=== PATIENT | female | born 1945 | race Caucasian/White ===

== ENCOUNTER → 2017-07-15 | Outpatient (CLI) | payer MEDICARE, OTHER ==
--- NOTE | 2017-07-15 19:06 | BD ---
EXAMINATION TYPE: MG DEXA axial skeleton. DATE OF EXAM: 07/15/2017 CLINICAL HISTORY: 72-year-old female postmenopausal screening Height: 62 Weight: 136 FRAX RISK QUESTIONS: Alcohol (3 or more units per day): no Family History (Parent hip fracture): no Glucocorticoids (More than 3mos): no (Ex: prednisone, prednisolone, methylprednisolone, dexamethasone, and hydrocortisone). History of Fracture in Adulthood: no Secondary Osteoporosis: 1. Type 1 Diabetes: no 2. Hyperthyroidism: no 3. Menopause before 45: no 4. Malnutrition: no 5. Chronic liver disease: no Rheumatoid Arthritis: no Current Tobacco Use: no RISK FACTORS HISTORY OF: Family History of Osteoporosis: no Active: no Diet low in dairy products/other sources of calcium: several servings a week Postmenopausal woman: yes Take estrogen and/or progesterone medications: no Lost more than 2 inches in height since high school: no Frequent falls: no Poor Health: no Hyperparathyroidism: no Adrenal Insufficiency: no MEDICATIONS: Prednisone or other steroids: no Thyroid Medications: no Osteoporosis Medications:no Additional Medications: blood pressure meds, cholesterol meds Additional History: EXAM MEASUREMENTS: Bone mineral densitometry was performed using the [employer] System. Bone mineral density as measured about the Lumbar spine is: ----- L1-L4(G/cm2): 1.012 T Score Values are as follows: ----- L2: -2.0 ----- L3: -1.8 ----- L4: -0.5 ----- L1-L4: -1.4 Bone mineral density has: Increased 2.2% since study of: 04/18/2005 Bone mineral density about the R hip (g/cm2): 0.818 Bone mineral density about the L hip (g/cm2): 0.882 T Score values are as follows: -----R Neck: -1.6 -----L Neck: -1.1 -----R Total: -1.1 -----L Total: -1.0 Bone mineral density has: Decreased -13.6% since study of: 04/18/2005 IMPRESSION: Osteopenia (T Score between -2.5 and -1). There is slightly increased risk of fracture and the patient may be considered for treatment. Re-Screen 2-5 years. NOTE: T-SCORE=SD OF THE YOUNG ADULT MEAN.
--- NOTE | 2017-07-16 11:01 | MM ---
Reason for exam: screening (asymptomatic). Last mammogram was performed 5 years and 4 months ago. History: Patient is postmenopausal. Physical Findings: A clinical breast exam by your physician is recommended on an annual basis and results should be correlated with mammographic findings. MG 3D Screening Mammo W/Cad Bilateral CC and MLO view(s) were taken. Prior study comparison: March 03, 2012, bilateral digital screening mammo w/CAD. June 27, 2008, bilateral digital screening mammogram. There are scattered fibroglandular densities. Benign calcifications bilaterally. No significant changes when compared with prior studies. ASSESSMENT: Benign, BI-RAD 2 RECOMMENDATION: Routine screening mammogram of both breasts in 1 year.
== END | disposition home or self-care (01) ==
LOC: RADMAMWWP 08:58
PROVIDERS: ATTEND Obstetrics & Gynecology
DX: Z12.31 Encounter for screening mammogram for malignant neoplasm of breast (principal); Z13.820 Encounter for screening for osteoporosis; M85.80 Other specified disorders of bone density and structure, unspecified site; N95.1 Menopausal and female climacteric states
CPT/HCPCS: 77063; 77067; 77080

== ENCOUNTER → 2018-12-28 | Outpatient (CLI) | payer MEDICARE, OTHER ==
--- NOTE | 2018-12-28 19:37 | CONS ---
CONSULTATION Consultation from the [facility]. REASON FOR EVALUATION: Sleep apnea. 73-year-old female patient, referred to me for sleep apnea evaluation. The patient has history of valvular heart disease and has undergone aortic valve replacement, mitral valve repair and she has a bovine aortic valve and she has a pacemaker in place. During a recent pacemaker check, it was noted that she was having some "arrhythmias" and she was referred to me. Clinically, the patient did not have any snoring. No witnessed apneas. No choking or gasping sensation. No grinding of the teeth. She goes to bed around 11:30 p.m., wakes up 9:00 am in the morning. She does not feel tired or having trouble with concentration, memory or sleepiness or drowsiness during the day. She is averaging around 7 hours of sleep. She sleeps very soundly and no restlessness or leg kicks or any other issues disrupting her sleep. Her Lancaster score is at 3. She carries a body mass index of 24.7, and she has a Mallampati class 1. No nighttime orthopnea. No nighttime shortness of breath. No nighttime heartburn. PAST MEDICAL HISTORY: 1. Past medical history of aortic valve replacement and mitral valve repair. 2. History of pacemaker insertion. 3. Hypertension. 4. Hyperlipidemia. PAST SURGICAL HISTORY: Pacemaker and valve surgery including aortic valve replacement and mitral valve repair. DRUG ALLERGIES: Not known. OUTPATIENT MEDICATION LIST: Include aspirin 81 mg p.o. daily, Lisinopril 5 mg half tablet a day. Zocor 40 mg p.o. daily, Coreg 12.5 mg twice a day. Aldactone 25 mg p.o. daily. SOCIAL HISTORY: The patient is a nonsmoker. No history of alcohol. No history of IV drugs. FAMILY HISTORY: Negative for sleep apnea. Positive for heart disease and blood pressure. REVIEW OF SYSTEMS: Fourteen-point review of systems was done and is negative for now. She has no issues with excessive fatigue or sleepiness. No issues with snoring. No insomnia. No choking or gasping for air. No nocturia. No grinding of the teeth. No sleepwalking. No anxiety or panic attacks. No palpitations. No heartburn. No sweating. No claustrophobia. No depression or irritability. No problems with memory and concentration. No sleep paralysis. No hallucinations. No cataplexy. She is able to sleep in different body positions. Her weight has been stable. No history of any motor vehicle accident because of feeling drowsy or sleepy. PHYSICAL EXAMINATION: VITAL SIGNS: BP is 121/83, pulse 72, respirations 16, temperature 97.3, saturation 98% on room air. Height is 5 feet 1 inch weight 135, BMI 24.7, neck size 12-1/2 inches. General appearance: Calm, comfortable. HEAD: Atraumatic normocephalic. NECK: Supple. No JVD. No goiter or neck masses. LUNGS: Clear to auscultation. HEART: Heart sounds are regular rate and rhythm. Normal S1, S2. No S3, S4, no murmurs. ABDOMEN: Soft, nontender. No organomegaly. EXTREMITIES: No edema. No cyanosis or clubbing. NEUROLOGIC: Alert and oriented x3. No focal neurological deficits. PSYCHIATRIC: Negative for anxiety or depression. IMPRESSION: 1. Valvular heart disease with aortic valve placement and mitral valve repair. 2. History of pacemaker for postoperative cardiac Juanjose arrhythmias. 3. Hypertension. 4. Hyperlipidemia. PLAN: Had a lengthy discussion with the patient. The patient is not willing to undergo further testing. I think this is pretty much reasonable knowing that she does not have any signs or symptoms of sleep breathing disorder. Based on this, we decided not to do any further testing. She is already following a good sleep hygiene measure. She is averaging a good 7-8 hours of sleep. Her weight is stable. Her cardiac condition is stable. Her Lancaster score is low. 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 SURY / JAVIN: [id number] /
== END | disposition home or self-care (01) ==
LOC: SLEEP 14:46
PROVIDERS: ATTEND Internal Medicine Critical Care Medicine
DX: I38 Endocarditis, valve unspecified (principal); I10 Essential (primary) hypertension; E78.5 Hyperlipidemia, unspecified; Z95.0 Presence of cardiac pacemaker; Z95.2 Presence of prosthetic heart valve; Z98.890 Other specified postprocedural states; Z79.82 Long term (current) use of aspirin; Z79.899 Other long term (current) drug therapy
CPT/HCPCS: 99211

== ENCOUNTER → 2019-04-20 | Outpatient (CLI) | payer MEDICARE, OTHER ==
[2019-04-20 16:23] LABS: African American GFR (CKD) 64.3 (60.0-200.0); Anion Gap 5.9 mmol/L (4.00-12.00); Calcium 10.7 mg/dL (8.7-10.3); Carbon Dioxide 30.1 mmol/L (21.6-31.8); Non-African American GFR(CKD) 55.5 (60.0-200.0); Potassium 5.5 mmol/L (3.5-5.5)
== END | disposition home or self-care (01) ==
LOC: LABWHC1 10:37
PROVIDERS: ATTEND Internal Medicine Clinical Cardiac Electrophysiology
DX: I10 Essential (primary) hypertension (principal); I48.91 Unspecified atrial fibrillation; I38 Endocarditis, valve unspecified
CPT/HCPCS: 36415; 80048; 80061; 84443

== ENCOUNTER 2019-05-19 23:00 | Emergency (ER) | payer MEDICARE, OTHER ==
[2019-05-19 23:06] VITALS: RESP 18
[2019-05-19] MEDS ORDERED: ASPIRIN 81 MG PO STA (23:42)
--- NOTE | 2019-05-19 23:42 | ED ---
General Adult HPI - General Chief complaint: Extremity Problem,Nontraumatic Stated complaint: Pain in shoulders and arms Time Seen by Provider: 05/19/19 23:09 Source: patient Mode of arrival: ambulatory Limitations: no limitations - History of Present Illness Initial comments: Patient is 74-year-old female with history of mitral and aortic valve repair presenting to emergency Department with a chief complaint of arm pain. Patient reports pain in both shoulders a started about 2 days ago. States the pain feels both make cannot somewhat sharp or shooting pain. Denies any alleviating or aggravating factors. Denies any trauma to the region. Reports the pain is more on the left side versus right. States the pain starts noted top of the shoulder radiates to the elbow. Denies any chest pain, shortness of breath, diaphoretic episodes, lightheaded, dizziness, blurry vision, one-sided weakness or paresthesias. - Related Data Home Medications Medication Instructions Recorded Confirmed Aspirin 81 mg PO BID 10/13/13 12/19/15 Simvastatin [Zocor] 40 mg PO HS 10/13/13 12/19/15 Lisinopril [Prinivil] 5 mg PO 1200 04/10/14 12/19/15 Biotin 1 tab PO DAILY 04/11/14 12/19/15 Docusate [Colace] 1 tab PO DAILY 04/11/14 12/19/15 Multivitamins, Thera [Multivitamin] 1 tab PO DAILY 12/19/15 12/19/15 Previous Rx's Medication Instructions Recorded Carvedilol [Coreg] 3.125 mg PO BID #120 tab 10/13/13 Allergies Allergy/AdvReac Type Severity Reaction Status Date / Time No Known Allergies Allergy Verified 05/19/19 23:06 Review of Systems ROS Statement: Those systems with pertinent positive or pertinent negative responses have been documented in the HPI. ROS Other: All systems not noted in ROS Statement are negative. Past Medical History Past Medical History: GERD/Reflux, Hyperlipidemia Additional Past Medical History / Comment(s): HX OF MITRAL AND AORTIC VALVES REPLACED, HX OF GERD, FREQUENT CONSTIPATION. SEE CAN LABELER H & P. STATES SLIGHTLY [place]. History of Any Multi-Drug Resistant Organisms: None Reported Past Surgical History: Cardiac Valve Replacement, Pacemaker, Tubal Ligation Additional Past Surgical History / Comment(s): AORTIC/MITRAL VALVES REPLACED X2 2002/2009 W/ BOVINE VALVES IN 2009. Past Anesthesia/Blood Transfusion Reactions: Previous Problems w/ Anesthesia, Family History of Problems w/ Anesthesia Additional Past Anesthesia/Blood Transfusion Reaction / Comment(s): PT TAKES LONG TIME TO AWAKEN FROM ANESTHESIA. STATES A COUSIN THAT HAS THE SAME PROBLEM . Type of Cardiac Device: Permanent Pacemaker Device Placement Date:: 2009 Past Psychological History: No Psychological Hx Reported Smoking Status: Never smoker - Past Family History Son(s) Family Medical History: No Reported History Father Family Medical History: Cancer Brother(s) Family Medical History: Cancer General Exam Limitations: no limitations General appearance: alert, in no apparent distress Head exam: Present: atraumatic, normocephalic, normal inspection Eye exam: Present: normal appearance, PERRL, EOMI Pupils: Present: normal accommodation ENT exam: Present: normal exam, normal oropharynx Neck exam: Present: normal inspection, full ROM Respiratory exam: Present: normal lung sounds bilaterally Cardiovascular Exam: Present: regular rate, normal rhythm, normal heart sounds Extremities exam: Present: normal inspection, full ROM, normal capillary refill, other (+2 ulnar and radial pulses bilaterally.). Absent: tenderness (Pain is not reproducible in the left shoulder. Negative Bob. Negative empty can test.), joint swelling Back exam: Present: normal inspection, full ROM Neurological exam: Present: alert, oriented X3 Psychiatric exam: Present: normal affect, normal mood Skin exam: Present: warm, dry, intact, normal color Course Vital Signs 05/19/19 05/20/19 05/20/19 23:02 00:14 01:00 Temperature 97.4 F L Pulse Rate 80 61 55 L Respiratory 18 18 18 Rate Blood Pressure 134/90 121/80 103/71 O2 Sat by Pulse 99 99 94 L Oximetry 05/20/19 05/20/19 05/20/19 02:00 03:00 04:00 Temperature 97.6 F Pulse Rate 56 L 58 L 56 L Respiratory 18 18 18 Rate Blood Pressure 92/68 105/62 105/61 O2 Sat by Pulse 92 L 98 97 Oximetry EKG Findings - EKG Comments: EKG Findings:: Sinus arrhythmia with a ventricular paced rhythm. Ventricular rate 61 him appear 112, QRS 156, QTC 487. Medical Decision Making - Medical Decision Making Patient is a 74-year-old female with history of a pacemaker, dyslipidemia, mitral and aortic valve replacement presenting to emergency with a chief complaint of arm pain. Patient appears to have left upper extremity pain on the left side more versus right. Pain appears to be starting near the trapezius and traveling to the shoulder. No numbness or tingling. No exacerbating or alleviating factors. No trauma to the region. EKG shows a ventricular paced rhythm. Chest x-ray is unremarkable. CBC and CMP are unremarkable. Initial troponins are negative. Repeat troponins are also negative. I have low suspicion for cervical radiculopathy. Patient does not appear to have a cervical tenderness numbness or tingling that radiates all the way to the hand. patient sees on regular bases. She is set to see him this week. Pat ient was given aspirin. Reevaluation patient reports the pain has slowly resolved. Return parameters were thoroughly discussed with patient was understanding and agreeable. Case discussed with physician. - Lab Data Result diagrams: 05/20/19 00:01 05/20/19 00:01 Lab Results 05/20/19 05/20/19 05/20/19 Range/Units 00:01 00:01 00:01 WBC 8.2 (3.8-10.6) k/uL RBC 4.28 (3.80-5.40) m/uL Hgb 13.3 (11.4-16.0) gm/dL Hct 41.1 (34.0-46.0) % MCV 95.9 (80.0-100.0) fL MCH 31.2 (25.0-35.0) pg MCHC 32.5 (31.0-37.0) g/dL RDW 12.6 (11.5-15.5) % Plt Count 220 (150-450) k/uL Neutrophils % 48 % Lymphocytes % 34 % Monocytes % 6 % Eosinophils % 9 % Basophils % 1 % Neutrophils # 4.0 (1.3-7.7) k/uL Lymphocytes # 2.8 (1.0-4.8) k/uL Monocytes # 0.5 (0-1.0) k/uL Eosinophils # 0.7 (0-0.7) k/uL Basophils # 0.1 (0-0.2) k/uL PT 10.0 (9.0-12.0) sec INR 1.0 (<1.2) APTT 23.6 (22.0-30.0) sec Sodium 138 (137-145) mmol/L Potassium 4.7 (3.5-5.1) mmol/L Chloride 104 (98-107) mmol/L Carbon Dioxide 26 (22-30) mmol/L Anion Gap 8 mmol/L BUN 23 H (7-17) mg/dL Creatinine 1.10 H (0.52-1.04) mg/dL Est GFR (CKD-EPI)AfAm 57 (>60 ml/min/1.73 sqM) Est GFR (CKD-EPI)NonAf 50 (>60 ml/min/1.73 sqM) Glucose 109 H (74-99) mg/dL Calcium 10.2 (8.4-10.2) mg/dL Magnesium 2.1 (1.6-2.3) mg/dL Total Bilirubin 0.3 (0.2-1.3) mg/dL AST 26 (14-36) U/L ALT 15 (4-34) U/L Alkaline Phosphatase 62 (38-126) U/L Troponin I (0.000-0.034) ng/mL Total Protein 7.1 (6.3-8.2) g/dL Albumin 4.2 (3.5-5.0) g/dL 05/20/19 05/20/19 Range/Units 00:01 03:20 WBC (3.8-10.6) k/uL RBC (3.80-5.40) m/uL Hgb (11.4-16.0) gm/dL Hct (34.0-46.0) % MCV (80.0-100.0) fL MCH (25.0-35.0) pg MCHC (31.0-37.0) g/dL RDW (11.5-15.5) % Plt Count (150-450) k/uL Neutrophils % % Lymphocytes % % Monocytes % % Eosinophils % % Basophils % % Neutrophils # (1.3-7.7) k/uL Lymphocytes # (1.0-4.8) k/uL Monocytes # (0-1.0) k/uL Eosinophils # (0-0.7) k/uL Basophils # (0-0.2) k/uL PT (9.0-12.0) sec INR (<1.2) APTT (22.0-30.0) sec Sodium (137-145) mmol/L Potassium (3.5-5.1) mmol/L Chloride (98-107) mmol/L Carbon Dioxide (22-30) mmol/L Anion Gap mmol/L BUN (7-17) mg/dL Creatinine (0.52-1.04) mg/dL Est GFR (CKD-EPI)AfAm (>60 ml/min/1.73 sqM) Est GFR (CKD-EPI)NonAf (>60 ml/min/1.73 sqM) Glucose (74-99) mg/dL Calcium (8.4-10.2) mg/dL Magnesium (1.6-2.3) mg/dL Total Bilirubin (0.2-1.3) mg/dL AST (14-36) U/L ALT (4-34) U/L Alkaline Phosphatase (38-126) U/L Troponin I 0.014 0.015 (0.000-0.034) ng/mL Total Protein (6.3-8.2) g/dL Albumin (3.5-5.0) g/dL Disposition Clinical Impression: Pain in both upper extremities Disposition: HOME SELF-CARE Condition: Stable Instructions (If sedation given, give patient instructions): Arm Pain (ED) Additional Instructions: Return to the emergency department if symptoms worsen. Follow-up with primary care. Is patient prescribed a controlled substance at d/c from ED?: No Referrals: Cha Luke III, MD [Primary Care Provider] - 1-2 days Time of Disposition: 04:03
[2019-05-20 00:26] LABS: Basophils # (A) 0.1 k/uL (0-0.2); Basophils % (A) 1 %; Eosinophils # (A) 0.7 k/uL (0-0.7); Eosinophils % (A) 9 %; HCT 41.1 % (34.0-46.0); HGB 13.3 gm/dL (11.4-16.0); Lymphocytes # (A) 2.8 k/uL (1.0-4.8); Lymphocytes % (A) 34 %; MCH 31.2 pg (25.0-35.0); MCHC 32.5 g/dL (31.0-37.0); MCV 95.9 fL (80.0-100.0); Mean Platelet Volume 7.1; Monocytes # (A) 0.5 k/uL (0-1.0); Monocytes % (A) 6 %; Neutrophils % (A) 48 %; Platelet Count 220 k/uL (150-450); RBC 4.28 m/uL (3.80-5.40); RDW 12.6 % (11.5-15.5); WBC 8.2 k/uL (3.8-10.6)
--- NOTE | 2019-05-20 00:26 | XR ---
EXAMINATION TYPE: XR chest 2V DATE OF EXAM: 05/20/2019 COMPARISON: 10/25/2013 HISTORY: Chest pain TECHNIQUE: FINDINGS: There is no heart failure nor confluent pneumonic infiltrate. Costophrenic angles are clear. Thoracic aorta is atheromatous. There is left axillary pacemaker. There are sternal wires. There is cardiac v alve surgery. IMPRESSION: No active cardiopulmonary disease. There is clearing of some atelectasis behind the heart in the left lower lobe compared to old exam.
[2019-05-20 00:44] LABS: Albumin 4.2 g/dL (3.5-5.0); Calcium 10.2 mg/dL (8.4-10.2); Magnesium 2.1 mg/dL (1.6-2.3); Potassium 4.7 mmol/L (3.5-5.1); Total Bilirubin 0.3 mg/dL (0.2-1.3); Total Protein 7.1 g/dL (6.3-8.2)
[2019-05-20 00:51] LABS: Partial Thromboplastin Time 23.6 sec (22.0-30.0)
[2019-05-20 02:56] VITALS: PULSE 56
[2019-05-20 05:23] VITALS: BP 105/61; TEMP 97.6
== END 2019-05-20 04:36 | disposition home or self-care (01) ==
LOC: EC 23:00
DX: M25.511 Pain in right shoulder (principal); M25.512 Pain in left shoulder; M79.601 Pain in right arm; M79.602 Pain in left arm; E78.5 Hyperlipidemia, unspecified; K59.00 Constipation, unspecified; Z79.82 Long term (current) use of aspirin; Z79.899 Other long term (current) drug therapy; Z95.0 Presence of cardiac pacemaker
CPT/HCPCS: 36415; 71046; 80053; 83735; 84484; 85025; 85610; 85730; 93005; 99283

== ENCOUNTER → 2021-10-24 | Outpatient (CLI) | payer MEDICARE ==
[2021-10-24 22:46] LABS: Basophils # (A) 0.04 X 10*3/uL (0.00-0.10); Basophils % (A) 0.4 %; Eosinophils # (A) 0.19 X 10*3/uL (0.04-0.35); Eosinophils % (A) 2.1 %; HCT 41.2 % (37.2-46.3); HGB 13.5 g/dL (12.0-15.0); Lymphocytes # (A) 2.07 X 10*3/uL (0.90-5.00); Lymphocytes % (A) 22.8 %; MCH 31.9 pg (27.0-32.0); MCHC 32.8 g/dL (32.0-37.0); MCV 97.4 fL (80.0-97.0); Mean Platelet Volume 9.6 fL (9.5-12.2); Monocytes # (A) 0.63 X 10*3/uL (0.20-1.00); NRBC Per 100 WBC 0 /100 WBCS (0.0-0.0); Neutrophils # (A) 6.04 X 10*3/uL (1.80-7.70); Neutrophils % (A) 66.7 %; Platelet Count 218 X 10*3/uL (140-440); RBC 4.23 X 10*6/uL (4.10-5.20); RDW 13.1 % (11.5-14.5); WBC 9.06 X 10*3/uL (4.50-10.00)
[2021-10-25 00:27] LABS: African American GFR (CKD) 53.5 (60.0-200.0); Anion Gap 9.3 mmol/L (10.00-18.00); BUN/Creat Ratio 18.78 Ratio (12.00-20.00); Blood Urea Nitrogen 21.6 mg/dL (9.0-27.0); Calcium 10.7 mg/dL (8.7-10.3); Carbon Dioxide 26.5 mmol/L (20.0-27.5); Non-African American GFR(CKD) 46.2 (60.0-200.0); Potassium 5.1 mmol/L (3.5-5.5)
== END | disposition home or self-care (01) ==
LOC: LABPAT 14:38
PROVIDERS: ATTEND Obstetrics & Gynecology
DX: Z01.812 Encounter for preprocedural laboratory examination (principal)
CPT/HCPCS: 80048; 85025; 93005

== ENCOUNTER → 2022-01-02 | Outpatient (CLI) | payer MEDICARE ==
--- NOTE | 2022-01-03 08:28 | MM ---
Reason for Exam: Screening (asymptomatic). Last mammogram was performed 4 year(s) and 5 month(s) ago. Patient History: Menarche at age 11. First Full-Term at age 17. Postmenopausal. Risk Values: Lyly 5 year model risk: 1.4%. NCI Lifetime model risk: 2.8%. Prior Study Comparison: 06/27/2008 Bilateral Screening Mammogram, [facility]. 03/03/2012 Bilateral Screening Mammogram, [facility]. 07/15/2017 Bilateral Screening Mammogram, [facility]. Tissue Density: There are scattered fibroglandular densities. Findings: Analyzed By CAD. There is no suspicious group of microcalcifications or new suspicious mass in either breast. Overall Assessment: Negative, BI-RAD 1 Management: Screening Mammogram of both breasts in 1 year. A clinical breast exam by your physician is recommended on an annual basis and results should be correlated with mammographic findings. [facility] will attempt to contact patient to return for supplemental views and ultrasound if indicated. Electronically signed and approved by: Steve López DO
--- NOTE | 2022-01-03 09:06 | BD ---
EXAMINATION TYPE: Axial Bone Density DATE OF EXAM: 01/02/2022 COMPARISON: 07.15.2017 CLINICAL HISTORY: 76 years year old Female. ICD-10 CODE: M85.88 DISORDER OF BONE Height: 60.5 Weight: 118 FRAX RISK QUESTIONS: NOTHING TO NOTE HERE RISK FACTORS HISTORY OF: Postmenopausal woman: 50 YRS OLD Lost more than 2 inches in height since high school: YES Hyperparathyroidism: NO Adrenal Insufficiency: NO MEDICATIONS: Additional Medications: BP MEDS, CHOLESTEROL MEDS, VIT D AND CALCIUM Additional History: HYPERTENSION, CHOLESTEROL, EXAM MEASUREMENTS: Bone mineral densitometry was performed using the [employer] System. Bone mineral density as measured about the Lumbar spine is: ----- L1-L4(G/cm2): 1.016 T Score Values are as follows: ----- L1: -2.1 ----- L2: -2.2 ----- L3: -1.8 ----- L4: 0.3 ----- L1-L4: -1.4 Bone mineral density has: Increased 0.4% since study of: 07.15.2017 Bone mineral density about the R hip (g/cm2): 0.819 Bone mineral density about the L hip (g/cm2): 0.839 T Score values are as follows: -----R Neck: -1.8 -----L Neck: -1.3 -----R Total: -1.5 -----L Total: -1.3 Bone mineral density has: Decreased -5.3% since study of: 07.15.2017 FRAX%s: The graph provided illustrates a 12.7% chance for a major osteoporotic fx and a 3.3% chance f or the hips probability for fx in 10 years time. IMPRESSION: Osteopenia (T Score between -2.5 and -1). There is slightly increased risk of fracture and the patient may be considered for treatment. Re-Screen 2-5 years. NOTE: T-SCORE=SD OF THE YOUNG ADULT MEAN.
== END | disposition home or self-care (01) ==
LOC: RADMAMWWP 08:45
PROVIDERS: ATTEND Obstetrics & Gynecology
DX: Z12.31 Encounter for screening mammogram for malignant neoplasm of breast (principal); M85.89 Other specified disorders of bone density and structure, multiple sites; Z78.0 Asymptomatic menopausal state
CPT/HCPCS: 77063; 77067; 77080

== ENCOUNTER 2022-11-05 09:18 | Day surgery (SDC) | payer MEDICARE ==
[2022-10-28 16:35] VITALS: BMI 21.5
[~2022-11-05 09:18] MED LIST: LACTATED RINGERS 1,000 ML IV SCH; SODIUM CHLORIDE 0.9% 1,000 ML IV SCH; ceFAZolin 1 GM in SODIUM CHLORIDE 0.9% IRRIG BTL 250 ML IRRIGATION PRN
[2022-11-05 09:39] VITALS: RESP 18; TEMP 97.7
[2022-11-05 09:53] LABS: Basophils % (A) 1 %; Eosinophils # (A) 0.2 k/uL (0-0.7); Eosinophils % (A) 3 %; HCT 38.9 % (34.0-46.0); Lymphocytes # (A) 1.8 k/uL (1.0-4.8); Lymphocytes % (A) 28 %; MCH 32.3 pg (25.0-35.0); MCHC 33.5 g/dL (31.0-37.0); MCV 96.6 fL (80.0-100.0); Mean Platelet Volume 7.4; Monocytes # (A) 0.4 k/uL (0-1.0); Monocytes % (A) 6 %; Neutrophils # (A) 3.9 k/uL (1.3-7.7); Neutrophils % (A) 61 %; Platelet Count 165 k/uL (150-450); RBC 4.03 m/uL (3.80-5.40); WBC 6.4 k/uL (3.8-10.6)
[2022-11-05 10:15] LABS: African American GFR (CKD) 49 (>60 ml/min/1.73 sqM); Anion Gap 5 mmol/L; Blood Urea Nitrogen 24 mg/dL (7-17); Carbon Dioxide 31 mmol/L (22-30); Chloride 103 mmol/L (98-107); Glucose 92 mg/dL (74-99); Non-African American GFR(CKD) 43 (>60 ml/min/1.73 sqM); Potassium 4.8 mmol/L (3.5-5.1); Sodium 139 mmol/L (137-145)
[2022-11-05] MEDS ORDERED: LIDOCAINE 1% INJ 10MG/ML (20 ML MDV) ONE ×2 (10:32→10:33)
[2022-11-05] MEDS ORDERED: VANCOMYCIN 750 MG in SODIUM CHLORIDE 0.9% 250 ML IVPB ONE (11:00)
[2022-11-05] MEDS ORDERED: fentaNYL (PF) 50 MCG/ML 2 ML AMP ONE (11:00)
[2022-11-05] MEDS ORDERED: MIDAZOLAM 2 MG/2 ML VIAL ONE (11:00)
[2022-11-05] MEDS ORDERED: diphenhydrAMINE 50 MG/ML 1 ML VIAL ONE (11:00)
[2022-11-05] MEDS ORDERED: LIDOCAINE 1% INJ 10MG/ML (20 ML MDV) SQ ONE (11:38)
--- NOTE | 2022-11-05 12:18 | P.EPPROC ---
- EP Procedure Note Electrophysiology Procedure Note: Diagnosis Complete heart block, status post biventricular pacemaker to preserve LV function and avoid RV only pacing Biventricular pacemaker generator at TRISTEN, normal battery depletion Procedure LV/ biventricular pacemaker generator change Details Patient was brought to the EP lab in a fasting state. Written informed consent was obtained prior to the procedure. Conscious sedation provided by anesthesia team IV antibiotics administered. Local anesthesia administered. A 4 cm incision m john in the pectoral area. Subfascial pocket was extended caudally to accommodate the device and provide better skin coverage. Atrial lead position the right atrial appendage. Cine fluoroscopy revealed lead in stable position, no fractures or breaks P waves 0.6 V pacing impedance 361 ohms and pacing threshold 0.5 V at 0.4 ms RV lead position in the RV septum. Cine fluoroscopy revealed stable position no fractures or breaks Pacing impedance 494 ohms and pacing threshold 0.75 V at 0.4 ms LV lead positioned in the lateral LV vein. This is a bipolar LV. Pacing threshold 2.25 V at 1.3 ms, stable pacing impedance between 901,000 Cinefluoroscopy revealed no fractures or breaks New Biventricular pacemaker device connected to the leads and placed in the subfascial pocket The patient had been complaining that her skin had thinned out over the generator The subfascial pocket was extended more caudally to provide better skin coverage An antibiotic pouch was also placed in the pocket Patient tolerated the procedure well without acute complications Device programmed to DDDR 50-130 bpm simultaneous pacing of RV and LV, nominal AV delay
[2022-11-05] MEDS ORDERED: ACETAMINOPHEN TAB 325 MG TAB PO PRN (12:20)
[2022-11-05 14:30] VITALS: PULSE 64
[2022-11-05 14:52] VITALS: BP 86/54
[2022-11-05] MEDS ORDERED: SODIUM CHLORIDE 0.9% 250 ML IV SCH (16:15)
== END 2022-11-05 16:15 | disposition home or self-care (01) ==
LOC: CATHEP 09:18
PROVIDERS: ATTEND Internal Medicine Clinical Cardiac Electrophysiology
DX: I44.2 Atrioventricular block, complete (principal); Z95.0 Presence of cardiac pacemaker; E78.5 Hyperlipidemia, unspecified; Z79.01 Long term (current) use of anticoagulants; Z79.899 Other long term (current) drug therapy
CPT/HCPCS: 33229; 80048; 85025; C1769; C2621; J2250; J3370; J1200; J0690; J2001; J3010

== ENCOUNTER → 2023-03-02 | Outpatient (CLI) | payer MEDICARE ==
--- NOTE | 2023-03-04 08:42 | MM ---
Reason for Exam: Screening (asymptomatic). Last mammogram was performed 1 year(s) and 2 month(s) ago. Patient History: Menarche at age 11. First Full-Term at age 17. Postmenopausal. Risk Values: Lyly 5 year model risk: 1.4%. NCI Lifetime model risk: 2.7%. Prior Study Comparison: 03/03/2012 Bilateral Screening Mammogram, [facility]. 07/15/2017 Bilateral Screening Mammogram, [facility]. 01/02/2022 Bilateral MG 3D screening mammo w/cad, [facility]. Tissue Density: The breast tissue is heterogeneously dense. This may lower the sensitivity of mammography. Findings: Analyzed By CAD. There is no suspicious group of microcalcifications or new suspicious mass in either breast. Overall Assessment: Benign, BI-RAD 2 Management: Screening Mammogram of both breasts in 1 year. . Patient should continue monthly self-breast exams. A clinical breast exam by your physician is recommended on an annual basis. This exam should not preclude additional follow-up of suspicious palpable abnormalities. Note on Lyly scores and lifetime risk: 1. A Lyly score greater than 3% is considered moderate risk. If this is the case, consider specialist referral to assess eligibility for a risk reducing agent. 2. If overall lifetime risk for the development of breast cancer is 20% or higher, the patient may qualify for future screening with alternating mammogram and breast MRI. Electronically signed and approved by: Giuliano Quevedo M.D. Radiologis
== END | disposition home or self-care (01) ==
LOC: RADMAMWWP 15:51
PROVIDERS: ATTEND Family Medicine
DX: Z12.31 Encounter for screening mammogram for malignant neoplasm of breast (principal); Z78.0 Asymptomatic menopausal state
CPT/HCPCS: 77063; 77067

== ENCOUNTER 2023-09-25 21:54 | Observation (INO) | payer MEDICARE ==
[2023-09-25 23:18] LABS: Basophils % (A) 0 %; Eosinophils # (A) 0.1 k/uL (0-0.7); Eosinophils % (A) 1 %; HCT 30.8 % (34.0-46.0); HGB 10.6 gm/dL (11.4-16.0); Lymphocytes # (A) 1.4 k/uL (1.0-4.8); Lymphocytes % (A) 17 %; MCH 32.4 pg (25.0-35.0); MCHC 34.4 g/dL (31.0-37.0); MCV 94.2 fL (80.0-100.0); Mean Platelet Volume 8.1; Monocytes # (A) 0.8 k/uL (0-1.0); Monocytes % (A) 9 %; Neutrophils # (A) 5.8 k/uL (1.3-7.7); Neutrophils % (A) 69 %; Platelet Count 226 k/uL (150-450); RBC 3.27 m/uL (3.80-5.40); RDW 13.4 % (11.5-15.5); WBC 8.4 k/uL (3.8-10.6)
[2023-09-25 23:31] LABS: INR 1.1 (<1.2)
[2023-09-25 23:40] LABS: ALT 15 U/L (4-34); AST 23 U/L (14-36); African American GFR (CKD) 52 (>60 ml/min/1.73 sqM); Albumin 3.2 g/dL (3.5-5.0); Alkaline Phosphatase 92 U/L (38-126); Anion Gap 5 mmol/L; Blood Urea Nitrogen 34 mg/dL (7-17); Calcium 9.3 mg/dL (8.4-10.2); Carbon Dioxide 21 mmol/L (22-30); Chloride 105 mmol/L (98-107); Glucose 107 mg/dL (74-99); Non-African American GFR(CKD) 45 (>60 ml/min/1.73 sqM); Potassium 5.1 mmol/L (3.5-5.1); Sodium 131 mmol/L (137-145); Total Bilirubin 0.8 mg/dL (0.2-1.3); Total Protein 5.9 g/dL (6.3-8.2)
[2023-09-26] MEDS ORDERED: ORPHENADRINE 30 MG/ML 2 ML VIAL IM PRN (01:21)
--- NOTE | 2023-09-26 01:22 | ED ---
Back Pain HPI - General Chief Complaint: Back Pain/Injury Stated Complaint: Back Pain Time Seen by Provider: 09/25/23 22:00 Source: patient Limitations: no limitations - History of Present Illness Initial Comments: 78-year-old female presents emergency department as a transfer from [facility]. She went into the emergency department today complaining of left-sided paraspinal pain. Pain is crampy in nature. It is worse with movement and palpation of the area. She does have a history of cardiac disease and therefore a cardiac workup was pursued. Patient received a considerable amount of medications to help alleviate her symptoms however she still had continued pain. She was transferred to our facility for further evaluation. Patient has a pacemaker. She denies any anterior chest pain. No fevers. Does admit to a slight cough. No other alleviating, precipitating modifying factors - Related Data Home Medications Medication Instructions Recorded Confirmed Lisinopril [Prinivil] 2.5 mg PO HS 04/10/14 11/05/22 Multivitamins, Thera [Multivitamin 1 tab PO DAILY 12/19/15 11/05/22 (formulary)] Apixaban [Eliquis] 5 mg PO BID 10/31/21 11/05/22 Atorvastatin [Lipitor] 40 mg PO HS 10/31/21 11/05/22 Spironolactone [Aldactone] 25 mg PO DAILY 10/31/21 11/05/22 carvediloL [Coreg] 12.5 mg PO BID 10/31/21 11/05/22 Biotin [Biotin Disolve] 5,000 mcg PO DAILY 10/28/22 11/05/22 Calcium Carbonate/Vitamin D3 2 each PO DAILY 10/28/22 11/05/22 [Calcium 600 mg-D3 20 mcg (800 unit)] Allergies Allergy/AdvReac Type Severity Reaction Status Date / Time No Known Allergies Allergy Verified 09/25/23 22:02 Review of Systems ROS Statement: Those systems with pertinent positive or pertinent negative responses have been documented in the HPI. ROS Other: All systems not noted in ROS Statement are negative. Past Medical History Past Medical History: Cancer, Hyperlipidemia, Hypertension Additional Past Medical History / Comment(s): hx mitral & aortic valve replacement, pacemaker, skin cancer., See [facility]iology [facility]. History of Any Multi-Drug Resistant Organisms: None Reported Past Surgical History: Cardiac Valve Replacement, Hysterectomy, Pacemaker, Tubal Ligation Additional Past Surgical History / Comment(s): AORTIC/MITRAL VALVES REPLACED W/ BOVINE VALVES Past Anesthesia/Blood Transfusion Reactions: Previous Problems w/ Anesthesia, Family History of Problems w/ Anesthesia Additional Past Anesthesia/Blood Transfusion Reaction / Comment(s): PT TAKES LONG TIME TO AWAKEN FROM ANESTHESIA. STATES A COUSIN THAT HAS THE SAME PROBLEM . Type of Cardiac Device: Permanent Pacemaker Device Placement Date:: 2009 Past Psychological History: No Psychological Hx Reported Smoking Status: Never smoker Past Alcohol Use History: Rare Past Drug Use History: None Reported - Past Family History Son(s) Family Medical History: Cancer Additional Family Medical History / Comment(s): NON -HODGKINS LYMPHOMA Father Family Medical History: Cancer Brother(s) Family Medical History: Cancer Mother Family Medical History: Cancer General Exam Limitations: no limitations General appearance: alert, in no apparent distress Head exam: Present: atraumatic, normocephalic, normal inspection Eye exam: Present: normal appearance, PERRL, EOMI. Absent: scleral icterus, conjunctival injection, periorbital swelling ENT exam: Present: normal exam, mucous membranes moist Neck exam: Present: normal inspection. Absent: tenderness, meningismus, lymphadenopathy Respiratory exam: Present: normal lung sounds bilaterally, chest wall tenderness (To palpation of the left posterior chest wall. No step-offs.). Absent: respiratory distress, wheezes, rales, rhonchi, stridor Cardiovascular Exam: Present: regular rate, normal rhythm, normal heart sounds. Absent: systolic murmur, diastolic murmur, rubs, gallop, clicks GI/Abdominal exam: Present: soft, normal bowel sounds. Absent: distended, tenderness, guarding, rebound, rigid Extremities exam: Present: normal inspection, full ROM, normal capillary refill. Absent: tenderness, pedal edema, joint swelling, calf tenderness Back exam: Present: normal inspection Neurological exam: Present: alert, oriented X3, CN II-XII intact Psychiatric exam: Present: normal affect, normal mood Skin exam: Present: warm, dry, intact, normal color. Absent: rash Course Vital Signs 09/25/23 09/25/23 09/26/23 21:57 23:51 01:00 Temperature 99.5 F Pulse Rate 65 60 62 Respiratory 20 18 18 Rate Blood Pressure 108/75 115/79 108/75 O2 Sat by Pulse 95 95 95 Oximetry 09/26/23 02:00 Temperature 98.1 F Pulse Rate 67 Respiratory 18 Rate Blood Pressure 107/60 O2 Sat by Pulse 95 Oximetry Medical Decision Making - Medical Decision Making Was pt. sent in by a medical professional or institution (, PA, FRONT OFFICE SPECIALIST, urgent care, hospital, or half-way...) When possible be specific @ -Patient was transferred by Glenda Magaña Did you speak to anyone other than the patient for history (EMS, parent, family, police, friend...)? What history was obtained from this source @ -Spoke with transferring physician Did you review nursing and triage notes (agree or disagree)? Why? @ -[I reviewed and agree with nursing and triage notes] Were old charts reviewed (outside hosp., previous admission, EMS record, old EKG, old radiological studies, urgent care reports/EKG's, half-way records)? Report findings @ -[No old charts were reviewed] Differential Diagnosis (chest pain, altered mental status, abdominal pain women, abdominal pain men, vaginal bleeding, weakness, fever, dyspnea, syncope, headache, dizziness, GI bleed, back pain, seizure, CVA, palpatations, mental health, musculoskeletal)? @ -Differential Back Pain: Strain, zoster, cauda equina syndrome, epidural abscess, vertebral osteomyelitis, discitis, fracture, subluxation, disc herniation, DJD, spinal stenosis, dissection, AAA, pancreatitis, peptic ulcer disease, pyelonephritis, kidney stone, this is not meant to be an all-inclusive list. EKG interpreted by me (3pts min.). @ -Yes and demonstrates electronic pacemaker with a rate of 66. QRS 158. QTc of 469. No acute ST segment elevations or depressions X-rays interpreted by me (1pt min.). @ -[None done] CT interpreted by me (1pt min.). @ -Yes and demonstrates no acute findings to account for the patient's pain U/S interpreted by me (1pt. min.). @ -[None done] What testing was considered but not performed or refused? (CT, X-rays, U/S, labs)? Why? @ -[None] What meds were considered but not given or refused? Why? @ -[None] Did you discuss the management of the patient with other professionals (professionals i.e. , PA, FRONT OFFICE SPECIALIST, lab, RT, psych nurse, marriage and family social worker, marine oiler, teacher, consumer loan officer, case investigator)? Give summary @ -[No] Was smoking cessation discussed for >3mins.? @ -[No] Was critical care preformed (if so, how long)? @ -[No] Were there social determinants of health that impacted care today? How? (Homelessness, low income, unemployed, alcoholism, drug addiction, transportation, low edu. Level, literacy, decrease access to med. care, alf, rehab)? @ -[No] Was there de-escalation of care discussed even if they declined (Discuss DNR or withdrawal of care, Hospice)? DNR status @ -[No] What co-morbidities impacted this encounter? (DM, HTN, Smoking, COPD, CAD, Cancer, CVA, ARF, Chemo, Hep., AIDS, mental health diagnosis, sleep apnea, morbid obesity)? @ -[None] Was patient admitted / discharged? Hospital course, mention meds given and route, prescriptions, significant lab abnormalities, going to OR and other pertinent info. @ -[hospital course] Undiagnosed new problem with uncertain prognosis? @ -[No] Drug Therapy requiring intensive monitoring for toxicity (Heparin, Nitro, Insulin, Cardizem)? @ -[No] Were any procedures done? @ -[No] Diagnosis/symptom? @ -[default] Acute, or Chronic, or Acute on Chronic? @ -[default] Uncomplicated (without systemic symptoms) or Complicated (systemic symptoms)? @ -[default] Side effects of treatment? @ -[No] Exacerbation, Progression, or Severe Exacerbation? @ -[No] Poses a threat to life or bodily function? How? (Chest pain, USA, CA, pneumonia, PE, COPD, DKA, ARF, appy, cholecystitis, CVA, Diverticulitis, Homicidal, Suic idal, threat to staff... and all critical care pts) @ -[No] - Lab Data Result diagrams: 09/25/23 22:57 09/25/23 22:57 Lab Results 09/25/23 09/25/23 09/25/23 Range/Units 22:57 22:57 22:57 WBC 8.4 (3.8-10.6) k/uL RBC 3.27 L (3.80-5.40) m/uL Hgb 10.6 L (11.4-16.0) gm/dL Hct 30.8 L (34.0-46.0) % MCV 94.2 (80.0-100.0) fL MCH 32.4 (25.0-35.0) pg MCHC 34.4 (31.0-37.0) g/dL RDW 13.4 (11.5-15.5) % Plt Count 226 (150-450) k/uL MPV 8.1 Neutrophils % 69 % Lymphocytes % 17 % Monocytes % 9 % Eosinophils % 1 % Basophils % 0 % Neutrophils # 5.8 (1.3-7.7) k/uL Lymphocytes # 1.4 (1.0-4.8) k/uL Monocytes # 0.8 (0-1.0) k/uL Eosinophils # 0.1 (0-0.7) k/uL Basophils # 0.0 (0-0.2) k/uL PT 12.0 (10.0-12.5) sec INR 1.1 (<1.2) APTT 32.0 H (22.0-30.0) sec Sodium 131 L (137-145) mmol/L Potassium 5.1 (3.5-5.1) mmol/L Chloride 105 (98-107) mmol/L Carbon Dioxide 21 L (22-30) mmol/L Anion Gap 5 mmol/L BUN 34 H (7-17) mg/dL Creatinine 1.17 H (0.52-1.04) mg/dL Est GFR (CKD-EPI)AfAm 52 (>60 ml/min/1.73 sqM) Est GFR (CKD-EPI)NonAf 45 (>60 ml/min/1.73 sqM) Glucose 107 H (74-99) mg/dL Calcium 9.3 (8.4-10.2) mg/dL Total Bilirubin 0.8 (0.2-1.3) mg/dL AST 23 (14-36) U/L ALT 15 (4-34) U/L Alkaline Phosphatase 92 (38-126) U/L Troponin I (0.000-0.034) ng/mL Total Protein 5.9 L (6.3-8.2) g/dL Albumin 3.2 L (3.5-5.0) g/dL 09/25/23 Range/Units 22:57 WBC (3.8-10.6) k/uL RBC (3.80-5.40) m/uL Hgb (11.4-16.0) gm/dL Hct (34.0-46.0) % MCV (80.0-100.0) fL MCH (25.0-35.0) pg MCHC (31.0-37.0) g/dL RDW (11.5-15.5) % Plt Count (150-450) k/uL MPV Neutrophils % % Lymphocytes % % Monocytes % % Eosinophils % % Basophils % % Neutrophils # (1.3-7.7) k/uL Lymphocytes # (1.0-4.8) k/uL Monocytes # (0-1.0) k/uL Eosinophils # (0-0.7) k/uL Basophils # (0-0.2) k/uL PT (10.0-12.5) sec INR (<1.2) APTT (22.0-30.0) sec Sodium (137-145) mmol/L Potassium (3.5-5.1) mmol/L Chloride (98-107) mmol/L Carbon Dioxide (22-30) mmol/L Anion Gap mmol/L BUN (7-17) mg/dL Creatinine (0.52-1.04) mg/dL Est GFR (CKD-EPI)AfAm (>60 ml/min/1.73 sqM) Est GFR (CKD-EPI)NonAf (>60 ml/min/1.73 sqM) Glucose (74-99) mg/dL Calcium (8.4-10.2) mg/dL Total Bilirubin (0.2-1.3) mg/dL AST (14-36) U/L ALT (4-34) U/L Alkaline Phosphatase (38-126) U/L Troponin I 0.024 (0.000-0.034) ng/mL Total Protein (6.3-8.2) g/dL Albumin (3.5-5.0) g/dL Disposition Clinical Impression: Intractable back pain Disposition: ADMITTED IP TO THIS HOSP Condition: Stable Is patient prescribed a controlled substance at d/c from ED?: No Time of Disposition: : Decision to Admit Reason: Admit from EC Decision Date: 09/26/23 Decision Time: :
[2023-09-26] MEDS ORDERED: NALOXONE 0.4 MG/ML 1 ML VIAL IV PRN ×2 (01:27→10:37)
[2023-09-26] MEDS ORDERED: MORPHINE SULFATE 4 MG/ML SYRINGE IV PRN (01:27)
[2023-09-26] MEDS: KETOROLAC 15 MG/ML 1 ML VIAL IVP STA (01:35)
--- NOTE | 2023-09-26 02:09 | CT ---
EXAM: CT Thoracic Spine Without Intravenous Contrast CLINICAL HISTORY: ITS.REASON CT Reason: chest/back pain TECHNIQUE: Axial computed tomography images of the thoracic spine without intravenous contrast. CTDI is 5 mGy and DLP is 190 mGy-cm. This CT exam was performed using one or more of the following dose reduction techniques: automated exposure control, adjustment of the mA and/or kV according to patient size, and/or use of iterative reconstruction technique. COMPARISON: No relevant prior studies available. FINDINGS: Vertebrae: No acute fracture. No sagittal subluxation. Discs/spinal canal/neural foramina: No spinal canal stenosis. Soft tissues: Mild right basilar atelectasis. IMPRESSION: No acute findings.
--- NOTE | 2023-09-26 02:15 | CT ---
EXAM: CT Chest Without Intravenous Contrast CLINICAL HISTORY: ITS.REASON CT Reason: chest pain TECHNIQUE: Axial computed tomography images of the chest without intravenous contrast. CTDI is 4.7 mGy and DLP is 211.7 mGy-cm. This CT exam was performed using one or more of the following dose reduction techniques: automated exposure control, adjustment of the mA and/or kV according to patient size, and/or use of iterative reconstruction technique. COMPARISON: No previous studies. FINDINGS: Lungs: Patchy airspace disease at the left lower lobe and the right lower lobe differential etiologies include which includes pneumonia versus atelectasis. Clinical correlation is advised of the findings are nonspecific. COPD. No mass. Pleural space: Unremarkable. No pneumothorax. No significant effusion. Heart: 0.4 cm pericardial effusion. Cardiomegaly. No significant coronary artery calcifications. Thyroid: Thyroid gland is unremarkable. Bones/joints: Sternotomy wires are noted in place. Severe degenerative disc disease of the thoracic spine. No acute fracture. No dislocation. Soft tissues: Unremarkable. Vasculature: Atherosclerotic disease of the thoracic aorta is noted. Ascending thoracic aorta measures 4.1 cm and is dilated. Is there a history of etiology such as hypertension. Lymph nodes: Unremarkable. No enlarged lymph nodes. Tubes, lines and devices: Pacemaker overlies the left upper chest. Other findings: ASCVD. IMPRESSION: 1. Cardiomegaly. 2. Atherosclerotic disease and ASCVD. 3. Patchy airspace disease near the lung bases. Consider pneumonia versus atelectasis. 4. Dilatation of the ascending thoracic aorta. Is there a history of etiology such as hypertension? No pathologic lymphadenopathy.
[2023-09-26] MEDS ORDERED: cefTRIAXone IN SWFI 1,000 MG/10 ML SYRINGE IVP STA (02:46)
[2023-09-26] MEDS: SODIUM CHLORIDE 0.9% 1,000 ML IV SCH (04:00)
[2023-09-26] MEDS: AZITHROMYCIN 500 MG TAB PO SCH (08:29)
[2023-09-26] MEDS: KETOROLAC 15 MG/ML 1 ML VIAL IVP PRN (10:53)
[2023-09-26] MEDS: APIXABAN 5 MG TAB PO SCH (11:05)
--- NOTE | 2023-09-26 11:26 | P.CNOR ---
History of Present Illness - [facility] Consult date: 09/26/23 Consult reason: back pain History of present illness: Patient is a 78-year-old female who was transferred from [facility] to [facility] for further evaluation of left-sided mid back pain. Patient had underwent a cardiology workup due to her cardiac history. Patient was admitted to [facility] for further evaluation, our orthopedic team was consulted. Patient was evaluated on the medical/surgical floor, her was present at bedside. Patient was very pleasant on exam. She states that the left-sided mid back discomfort has been going on for about a week. Patient was prescribed a few different medications by her primary care doctor, she cannot remember exactly what she took. She does admit to having some type of muscle relaxer that made her very sleepy. Patient denies any recent trauma. Patient states for the last 2 weeks she has felt very achy all over and having lack of energy. Patient denies any previous surgery to the cervical, thoracic or lumbar spine. Patient has been utilizing a cane to help with ambulation over the last week or so. Patient denies any numbness or tingling to the bilateral upper or lower extremities. She denies any tristan weakness to the bilateral upper and lower extremities. She denies any numbness or tingling to the genital or perineal region. She denies any loss of bowel or bladder function at this time. Review of Systems Constitutional: Reports as per [facility] Past Medical History Past Medical History: Cancer, Hyperlipidemia, Hypertension Additional Past Medical History / Comment(s): hx mitral & aortic valve replacem ent, pacemaker, skin cancer., See Cardiology [facility]. History of Any Multi-Drug Resistant Organisms: None Reported Past Surgical History: Cardiac Valve Replacement, Hysterectomy, Pacemaker, Tubal Ligation Additional Past Surgical History / Comment(s): AORTIC/MITRAL VALVES REPLACED 2002/2009 W/ BOVINE VALVES Past Anesthesia/Blood Transfusion Reactions: Previous Problems w/ Anesthesia, Family History of Problems w/ Anesthesia Additional Past Anesthesia/Blood Transfusion Reaction / Comm: PT TAKES LONG TIME TO AWAKEN FROM ANESTHESIA. STATES A COUSIN THAT HAS THE SAME PROBLEM . Type of Cardiac Device: Permanent Pacemaker Device Placement Date:: 2009 Past Psychological History: No Psychological Hx Reported Smoking Status: Never smoker Past Alcohol Use History: Rare Past Drug Use History: None Reported - Past Family History Son(s) Family Medical History: Cancer Additional Family Medical History / Comment(s): NON -HODGKINS LYMPHOMA Father Family Medical History: Cancer Brother(s) Family Medical History: Cancer Mother Family Medical History: Cancer Medications and Allergies Home Medications Medication Instructions Recorded Confirmed Type Lisinopril [Prinivil] 2.5 mg PO HS 04/10/14 09/26/23 History Apixaban [Eliquis] 5 mg PO BID 10/31/21 09/26/23 History Atorvastatin [Lipitor] 40 mg PO HS 10/31/21 09/26/23 History Spironolactone [Aldactone] 25 mg PO DAILY 10/31/21 09/26/23 History carvediloL [Coreg] 12.5 mg PO BID 10/31/21 09/26/23 History tiZANidine [Zanaflex] 4 mg PO Q8HR 09/26/23 09/26/23 History Allergies Allergy/AdvReac Type Severity Reaction Status Date / Time No Known Allergies Allergy Verified 09/26/23 09:11 Physical Examination Gen: AOx3, NAD VSS stable at this time Integument: No open lesions or sores are visualized throughout the cervical, thoracic or lumbar spine. Patient does have a Lidoderm patch in the mid thoracic spine. Palpation: No significant tenderness with palpation appreciated throughout the cervical, thoracic or lumbar spine. Patient notes most discomfort on the left side mid thoracic with movement ROM: Full range of motion in all major muscle groups of the bilateral upper and lower extremities, no focal deficits appreciated Sensory Exam: Senory exam to light touch is intact C5-T1 Senosry exam to light touch is intact L2-S1 Motor: 5/5 strength appreciated the bilateral upper extremities with shoulder elevation, shoulder abduction, elbow extension, elbow flexion, wrist extension, wrist flexion, cigarette stamper 5/5 strength appreciated the bilateral lower extremities with hip flexion, knee extension, knee flexion, plantarflexion, dorsiflexion, EHL, FHL Reflexes: 2/4 in all UE and LE Negative Jg's bilaterally Negative Babinski bilaterally Negative clonus bilaterally Special Test: Logroll maneuver reproduces no pain to the bilateral hips Negative straight leg raise bilaterally Results - Labs Labs: Abnormal Lab Results - Last 24 Hours (Table) 09/25/23 09/25/23 09/25/23 Range/Units 22:57 22:57 22:57 RBC 3.27 L (3.80-5.40) m/uL Hgb 10.6 L (11.4-16.0) gm/dL Hct 30.8 L (34.0-46.0) % APTT 32.0 H (22.0-30.0) sec Sodium 131 L (137-145) mmol/L Carbon Dioxide 21 L (22-30) mmol/L BUN 34 H (7-17) mg/dL Creatinine 1.17 H (0.52-1.04) mg/dL Glucose 107 H (74-99) mg/dL Total Protein 5.9 L (6.3-8.2) g/dL Albumin 3.2 L (3.5-5.0) g/dL H & H 09/25/23 Range/Units 22:57 Hgb 10.6 L (11.4-16.0) gm/dL Hct 30.8 L (34.0-46.0) % Coagulation 09/25/23 Range/Units 22:57 INR 1.1 (<1.2) Result Diagrams: 09/25/23 22:57 09/25/23 22:57 Assessment and Plan Assessment: Left-sided mid thoracic back pain Left-sided mid thoracic muscle spasm 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 No acute fractures or dislocations noted. Kyphotic deformity appreciated in the thoracic spine. 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 Healy. No emergent orthopedic spine surgical intervention is recommended at this time. Patient has multilevel degenerative disc disease in the thoracic spine, could also visualize some of the cervical and lumbar spine which was also present. Patient is demonstrating no myelopathic symptoms at this time. Recommending conservative measures, this to include use of Tylenol, NSAIDs, low- dose muscle relaxer, and alternating heat and cold therapy GI and DVT prophylaxis per primary medical service Medical specialty recommendations appreciated Will continue to follow during hospital stay Time with Patient: Less than 30
--- NOTE | 2023-09-26 14:29 | P.HPIM ---
History of Present Illness H&P Date: 09/26/23 History of present illness; patient is 78-year-old lady who was a transfer from [facility] for evaluation for back pain. Patient stated that she was all right couple of days ago and started noticing left-sided back pain. Back pain was crampy in nature, intermittent, worsened with movement and relieved by rest. There was no complaint of fever or chills. There was no complaint of chest pain or shortness of breath. Patient was complaining of cough. Because of these back pain issues, patient was sent to [facility] Initial lab work done in the ER showed WBC 8.4, hemoglobin 10.6, platelet count 226, sodium 131, potassium 5.1, chloride 105,21, BUN 24, creatinine 1.17, glucose 107, calcium 9.3, total bilirubin 0.8, troponin 0.024 CT thoracic spine done showed no acute findings. CT chest done showed cardiomegaly, patchy airspace disease in the lung bases. EKG done in the ER showed heart rate of 66, electronic paced rhythm, no ST segment elevation or depression seen, no T-wave inversions seen. Patient admitted to internal medicine service REVIEW OF SYSTEMS: CONSTITUTIONAL: No fever, no malaise, no fatigue. HEENT: No recent visual problems or hearing problems. Denied any sore throat. CARDIOVASCULAR: No chest pain, orthopnea, PND, no palpitations, no syncope. PULMONARY: As mentioned above GASTROINTESTINAL: No diarrhea, no nausea, no vomiting, no abdominal pain. NEUROLOGICAL: No headaches, no weakness, no numbness. HEMATOLOGICAL: Denies any bleeding or petechiae. GENITOURINARY: Denies any burning micturition, frequency, or urgency. MUSCULOSKELETAL/RHEUMATOLOGICAL: As mentioned above ENDOCRINE: Denies any polyuria or polydipsia. The rest of the 14-point review of systems is negative. PHYSICAL EXAMINATION: GENERAL: The patient is alert and oriented x3, not in any acute distress. Well developed, well nourished. HEENT: Pupils are round and equally reacting to light. EOMI. No scleral icterus. No conjunctival pallor. Normocephalic, atraumatic. No pharyngeal erythema. No thyromegaly. CARDIOVASCULAR: S1 and S2 present. No murmurs, rubs, or gallops. PULMONARY: Chest is clear to auscultation, no wheezing or crackles. ABDOMEN: Soft, nontender, nondistended, normoactive bowel sounds. No palpable organomegaly. MUSCULOSKELETAL: No joint swelling or deformity. EXTREMITIES: No cyanosis, clubbing, or pedal edema. NEUROLOGICAL: Gross neurological examination did not reveal any focal deficits. SKIN: No rashes. Assessment and plan Intractable back pain Bacterial pneumonia History of mitral and aortic valve replacement Acute kidney injury Hypertension hyperlipidemia History of complete heart block s/p pacemaker placement History of atrial fibrillation Monitor vital signs Monitor CBC Monitor CMP Continue telemetry monitoring Trend troponin. Ordered IV Rocephin and azithromycin On IV fluids Ordered pain control Resume home meds Consult orthopedic spine for back pain Labs and medication were reviewed.. Continue same treatment. Continue with symptomatic treatment. Resume home medication. Monitor labs and vitals. DVT and GI prophylaxis. Further recommendations as per clinical course of the patient Dictation was produced using [employer] dictation software. please excuse any grammatical, word or spelling errors. Past Medical History Past Medical History: Cancer, Hyperlipidemia, Hypertension Additional Past Medical History / Comment(s): hx mitral & aortic valve re placement, pacemaker, skin cancer., See Cardiology H & P. History of Any Multi-Drug Resistant Organisms: None Reported Past Surgical History: Cardiac Valve Replacement, Hysterectomy, Pacemaker, Tubal Ligation Additional Past Surgical History / Comment(s): AORTIC/MITRAL VALVES REPLACED W/ BOVINE VALVES Past Anesthesia/Blood Transfusion Reactions: Previous Problems w/ Anesthesia, Family History of Problems w/ Anesthesia Additional Past Anesthesia/Blood Transfusion Reaction / Comment(s): PT TAKES LONG TIME TO AWAKEN FROM ANESTHESIA. STATES A COUSIN THAT HAS THE SAME PROBLEM . Type of Cardiac Device: Permanent Pacemaker Device Placement Date:: 2009 Past Psychological History: No Psychological Hx Reported Smoking Status: Never smoker Past Alcohol Use History: Rare Past Drug Use History: None Reported - Past Family History Son(s) Family Medical History: Cancer Additional Family Medical History / Comment(s): NON -HODGKINS LYMPHOMA Father Family Medical History: Cancer Brother(s) Family Medical History: Cancer Mother Family Medical History: Cancer Medications and Allergies Home Medications Medication Instructions Recorded Confirmed Type Lisinopril [Prinivil] 2.5 mg PO HS 04/10/14 09/26/23 History Apixaban [Eliquis] 5 mg PO BID 10/31/21 09/26/23 History Atorvastatin [Lipitor] 40 mg PO HS 10/31/21 09/26/23 History Spironolactone [Aldactone] 25 mg PO DAILY 10/31/21 09/26/23 History carvediloL [Coreg] 12.5 mg PO BID 10/31/21 09/26/23 History tiZANidine [Zanaflex] 4 mg PO Q8HR 09/26/23 09/26/23 History Allergies Allergy/AdvReac Type Severity Reaction Status Date / Time No Known Allergies Allergy Verified 09/26/23 09:11 Physical Exam Vitals: Vital Signs Temp Pulse Pulse Pulse Resp BP BP 09/26/23 07:23 97.7 F 70 16 94/60 09/26/23 04:00 98.6 F 09/26/23 03:04 98.0 F 68 18 109/71 09/26/23 02:00 98.1 F 67 18 107/60 09/26/23 01:00 62 18 108/75 09/25/23 23:51 60 18 115/79 09/25/23 21:57 99.5 F 65 20 108/75 Pulse Ox 09/26/23 07:23 95 09/26/23 04:00 09/26/23 03:04 94 L 09/26/23 02:00 95 09/26/23 01:00 95 09/25/23 23:51 95 09/25/23 21:57 95 Intake and Output 09/25/23 09/26/23 09/26/23 22:59 06:59 14:59 Other: # Voids 0 Weight 51.71 kg 51.71 kg Results CBC & Chem 7: 09/25/23 22:57 09/25/23 22:57 Labs: Abnormal Lab Results - Last 24 Hours (Table) 09/25/23 09/25/23 09/25/23 Range/Units 22:57 22:57 22:57 RBC 3.27 L (3.80-5.40) m/uL Hgb 10.6 L (11.4-16.0) gm/dL Hct 30.8 L (34.0-46.0) % APTT 32.0 H (22.0-30.0) sec Sodium 131 L (137-145) mmol/L Carbon Dioxide 21 L (22-30) mmol/L BUN 34 H (7-17) mg/dL Creatinine 1.17 H (0.52-1.04) mg/dL Glucose 107 H (74-99) mg/dL Total Protein 5.9 L (6.3-8.2) g/dL Albumin 3.2 L (3.5-5.0) g/dL Thrombosis Risk Factor Assmnt - Choose All That Apply Any of the Below Risk Factors Present?: No Each Risk Factor Represents 3 Points: Age 75 years or older Other congenital or acquired thrombophilia - If yes, enter type in comment: No Thrombosis Risk Factor Assessment Total Risk Factor Score: 3 Thrombosis Risk Factor Assessment Level: Moderate Risk
[2023-09-26] MEDS: oxyCODONE-APAP 5-325MG 1 EACH TAB PO PRN (16:10)
[2023-09-26] MEDS: ONDANSETRON 4 MG/2 ML VIAL IVP PRN (18:59)
[2023-09-26] MEDS: ATORVASTATIN 40 MG TAB PO SCH (20:06)
[2023-09-26] MEDS: carvediloL 12.5 MG TAB PO SCH (20:06)
[2023-09-27 09:44] LABS: Basophils # (A) 0.03 X 10*3/uL (0.00-0.10); Basophils % (A) 0.5 %; Eosinophils # (A) 0.06 X 10*3/uL (0.04-0.35); HCT 28.6 % (37.2-46.3); HGB 9.5 g/dL (12.0-15.0); Lymphocytes % (A) 30.3 %; MCH 31.8 pg (27.0-32.0); MCHC 33.2 g/dL (32.0-37.0); MCV 95.7 FL (80.0-97.0); Mean Platelet Volume 9.3 FL (9.5-12.2); Monocytes # (A) 0.71 X 10*3/uL (0.20-1.00); Monocytes % (A) 11.3 %; NRBC Per 100 WBC 0 X 10*3/uL (0.00-0.01); Neutrophils # (A) 3.49 X 10*3/uL (1.80-7.70); Neutrophils % (A) 55.6 %; Platelet Count 235 X 10*3/uL (140-440); RBC 2.99 X 10*6/uL (4.10-5.20); RDW 13.2 % (11.5-14.5); WBC 6.27 X 10*3/uL (4.50-10.00)
[2023-09-27 11:06] LABS: BUN/Creat Ratio 22.67 Ratio (12.00-20.00); Blood Urea Nitrogen 20.4 mg/dL (9.0-27.0); Carbon Dioxide 21.7 mmol/L (21.6-31.8); Chloride 107 mmol/L (96-109); Glucose 97 mg/dL (70-110); Potassium 4.9 mmol/L (3.5-5.5); Sodium 137 mmol/L (135-145)
--- NOTE | 2023-09-27 13:23 | P.PN ---
Subjective Progress Note Date: 09/27/23 Principal diagnosis: Left-sided midthoracic pain Patient was evaluated today at bedside, she has multiple family members present. Patient was actually sitting up in the chair, stating. Patient states she is feeling better today. She has noticed a decrease in the overall symptoms on the left-sided mid thoracic pain. She denies any chest pain or shortness of breath at this time. She denies any paresthesias to the bilateral upper or lower extremities. Objective - Vital Signs Vital signs: Vital Signs Temp 97.8 F 09/27/23 12:54 Pulse 54 L 09/27/23 12:54 Resp 16 09/27/23 12:54 BP 94/59 09/27/23 12:54 Pulse Ox 97 09/27/23 12:54 FiO2 Intake & Output 09/26/23 09/27/23 09/27/23 18:59 06:59 18:59 Intake Total 900 Output Total 240 Balance 660 Intake: Intake, IV Titration 900 Amount Sodium Chloride 0.9% 1, 900 000 ml @ 75 mls/hr IV . [id number] [facility] Rx#:[id number] Output: Urine 240 Other: Voiding Method Toilet Toilet # Voids 2 2 - Exam Gen: AOx3, NAD VSS stable at this time Integument: No open lesions or sores are visualized throughout the cervical, thoracic or lumbar spine. Patient does have a Lidoderm patch in the mid thoracic spine. Palpation: No significant tenderness with palpation appreciated throughout the cervical, thoracic or lumbar spine. Improvement in discomfort on the left-sided mid thoracic pain ROM: Full range of motion in all major muscle groups of the bilateral upper and lower extremities, no focal deficits appreciated Sensory Exam: Senory exam to light touch is intact C5-T1 Senosry exam to light touch is intact L2-S1 Motor: 5/5 strength appreciated the bilateral upper extremities with shoulder elevation, shoulder abduction, elbow extension, elbow flexion, wrist extension, wrist flexion, gin clerk 5/5 strength appreciated the bilateral lower extremities with hip flexion, knee extension, knee flexion, plantarflexion, dorsiflexion, EHL, FHL Reflexes: 2/4 in all UE and LE Negative Jg's bilaterally Negative Babinski bilaterally Negative clonus bilaterally Special Test: Logroll maneuver reproduces no pain to the bilateral hips Negative straight leg raise bilaterally - Labs CBC & Chem 7: 09/27/23 05:17 09/27/23 05:17 Labs: Abnormal Lab Results - Last 24 Hours (Table) 09/27/23 09/27/23 Range/Units 05:17 05:17 RBC 2.99 L (4.10-5.20) X 10*6/uL Hgb 9.5 L (12.0-15.0) g/dL Hct 28.6 L (37.2-46.3) % MPV 9.3 L (9.5-12.2) FL Immature Gran # 0.08 H (0.00-0.04) X 10*3/uL BUN/Creatinine Ratio 22.67 H (12.00-20.00) Ratio Assessment and Plan Assessment: Left-sided mid thoracic back pain Left-sided mid thoracic muscle spasm 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 Our follow-up information will be placed in chart on an as-needed basis Time with Patient: Less than 30
--- NOTE | 2023-09-27 13:33 | P.PN ---
Subjective Progress Note Date: 09/27/23 patient is 78-year-old lady who was a transfer from [facility] for evaluation for back pain. Patient stated that she was all right couple of days ago and started noticing left-sided back pain. Back pain was crampy in nature, intermittent, worsened with movement and relieved by rest. There was no co mplaint of fever or chills. There was no complaint of chest pain or shortness of breath. Patient was complaining of cough. Because of these back pain issues, patient was sent to [facility] Initial lab work done in the ER showed WBC 8.4, hemoglobin 10.6, platelet count 226, sodium 131, potassium 5.1, chloride 105,21, BUN 24, creatinine 1.17, glucose 107, calcium 9.3, total bilirubin 0.8, troponin 0.024 CT thoracic spine done showed no acute findings. CT chest done showed cardiomegaly, patchy airspace disease in the lung bases. EKG done in the ER showed heart rate of 66, electronic paced rhythm, no ST segment elevation or depression seen, no T-wave inversions seen. Patient admitted to internal medicine service 09/26. Patient seen and examined. States she feels much better compared to yesterday. States back pain has improved, did have 1 episode of back pain overnight. REVIEW OF SYSTEMS: CONSTITUTIONAL: No fever, no malaise,. CARDIOVASCULAR: No chest pain, no palpitations, no syncope. PULMONARY: No shortness of breath, no cough, GASTROINTESTINAL: No diarrhea, no nausea, no vomiting, no abdominal pain. NEUROLOGICAL: No headaches, no weakness, PHYSICAL EXAMINATION: GENERAL: The patient is alert and oriented x3, not in any acute distress. Well developed, well nourished. HEENT: Pupils are round and equally reacting to light. EOMI. No scleral icterus. No conjunctival pallor. Normocephalic, atraumatic. No pharyngeal erythema. No thyromegaly. CARDIOVASCULAR: S1 and S2 present. No murmurs, rubs, or gallops. PULMONARY: Chest is clear to auscultation, no wheezing or crackles. ABDOMEN: Soft, nontender, nondistended, normoactive bowel sounds. No palpable organomegaly. MUSCULOSKELETAL: No joint swelling or deformity. EXTREMITIES: No cyanosis, clubbing, or pedal edema. NEUROLOGICAL: Gross neurological examination did not reveal any focal deficits. SKIN: No rashes. Assessment and plan Intractable back pain Bacterial pneumonia History of mitral and aortic valve replacement Acute kidney injury Hypertension hyperlipidemia History of complete heart block s/p pacemaker placement History of atrial fibrillation Monitor vital signs Monitor CBC Monitor CMP Encourage ambulation Aggressive bronchopulmonary hygiene Continue IV Rocephin and azithromycin DC fluids Continue pain management Orthopedic following Labs and medication were reviewed.. Continue same treatment. Continue with symptomatic treatment. Resume home medication. Monitor labs and vitals. DVT and GI prophylaxis. Further recommendations as per clinical course of the patient Dictation was produced using [employer] dictation software. please excuse any grammatical, word or spelling errors. Objective - Vital Signs Vital signs: Vital Signs Temp 97.8 F 09/27/23 12:54 Pulse 54 L 09/27/23 12:54 Resp 16 09/27/23 12:54 BP 94/59 09/27/23 12:54 Pulse Ox 97 09/27/23 12:54 FiO2 Intake & Output 09/26/23 09/27/23 09/27/23 18:59 06:59 18:59 Intake Total 900 Output Total 240 Balance 660 Intake: Intake, IV Titration 900 Amount Sodium Chloride 0.9% 1, 900 000 ml @ 75 mls/hr IV . [id number] [facility] Rx#:[id number] Output: Urine 240 Other: Voiding Method Toilet Toilet # Voids 2 2 - Labs CBC & Chem 7: 09/27/23 05:17 09/27/23 05:17 Labs: Abnormal Lab Results - Last 24 Hours (Table) 09/27/23 09/27/23 Range/Units 05:17 05:17 RBC 2.99 L (4.10-5.20) X 10*6/uL Hgb 9.5 L (12.0-15.0) g/dL Hct 28.6 L (37.2-46.3) % MPV 9.3 L (9.5-12.2) FL Immature Gran # 0.08 H (0.00-0.04) X 10*3/uL BUN/Creatinine Ratio 22.67 H (12.00-20.00) Ratio
[2023-09-27] MEDS: LIDOCAINE 4% PATCH TOPICAL SCH (14:41)
[2023-09-28 08:37] LABS: Basophils # (A) 0.04 X 10*3/uL (0.00-0.10); Basophils % (A) 0.5 %; Eosinophils # (A) 0.12 X 10*3/uL (0.04-0.35); Eosinophils % (A) 1.6 %; HCT 30.9 % (37.2-46.3); Lymphocytes # (A) 2.23 X 10*3/uL (0.90-5.00); Lymphocytes % (A) 30.4 %; MCH 31.3 pg (27.0-32.0); MCHC 32.4 g/dL (32.0-37.0); MCV 96.6 FL (80.0-97.0); Mean Platelet Volume 9.6 FL (9.5-12.2); Monocytes # (A) 0.86 X 10*3/uL (0.20-1.00); Monocytes % (A) 11.7 %; NRBC Per 100 WBC 0 X 10*3/uL (0.00-0.01); Neutrophils # (A) 4.02 X 10*3/uL (1.80-7.70); Platelet Count 274 X 10*3/uL (140-440); RDW 13.2 % (11.5-14.5); WBC 7.33 X 10*3/uL (4.50-10.00)
[2023-09-28 09:30] LABS: BUN/Creat Ratio 19.78 Ratio (12.00-20.00); Blood Urea Nitrogen 17.8 mg/dL (9.0-27.0); Carbon Dioxide 21.7 mmol/L (21.6-31.8); Chloride 109 mmol/L (96-109); Glucose 93 mg/dL (70-110); Potassium 4.8 mmol/L (3.5-5.5); Sodium 140 mmol/L (135-145)
[2023-09-28 09:31] LABS: ALT 13 U/L (8-44); AST 18 U/L (13-35); Albumin 3.3 g/dL (3.8-4.9); Albumin/Globulin Ratio 1.27 Ratio (1.60-3.17); Alkaline Phosphatase 88 U/L (41-126); Calcium 9.6 mg/dL (8.7-10.3); Globulin 2.6 g/dL (1.6-3.3); Total Bilirubin 0.2 mg/dL (0.3-1.2); Total Protein 5.9 g/dL (6.2-8.2)
--- NOTE | 2023-09-28 13:35 | P.PN ---
Subjective Progress Note Date: 09/28/23 patient is 78-year-old lady who was a transfer from [facility] for evaluation for back pain. Patient stated that she was all right couple of days ago and started noticing left-sided back pain. Back pain was crampy in nature, intermittent, worsened with movement and relieved by rest. There was no co mplaint of fever or chills. There was no complaint of chest pain or shortness of breath. Patient was complaining of cough. Because of these back pain issues, patient was sent to [facility] Initial lab work done in the ER showed WBC 8.4, hemoglobin 10.6, platelet count 226, sodium 131, potassium 5.1, chloride 105,21, BUN 24, creatinine 1.17, glucose 107, calcium 9.3, total bilirubin 0.8, troponin 0.024 CT thoracic spine done showed no acute findings. CT chest done showed cardiomegaly, patchy airspace disease in the lung bases. EKG done in the ER showed heart rate of 66, electronic paced rhythm, no ST segment elevation or depression seen, no T-wave inversions seen. Patient admitted to internal medicine service 09/26. Patient seen and examined. States she feels much better compared to yesterday. States back pain has improved, did have 1 episode of back pain overnight. 09/27. Patient seen and examined. at the bedside, states patient has improved a lot but still concerned about having on and off episodes of back spasms. Patient follows up with Dr. Paz from cardiology, has been requesting to be seen by cardiology REVIEW OF SYSTEMS: CONSTITUTIONAL: No fever, no malaise,. CARDIOVASCULAR: No chest pain, no palpitations, no syncope. PULMONARY: No shortness of breath, no cough, GASTROINTESTINAL: No diarrhea, no nausea, no vomiting, no abdominal pain. NEUROLOGICAL: No headaches, no weakness, PHYSICAL EXAMINATION: GENERAL: The patient is alert and oriented x3, not in any acute distress. Well developed, well nourished. HEENT: Pupils are round and equally reacting to light. EOMI. No scleral icterus. No conjunctival pallor. Normocephalic, atraumatic. No pharyngeal erythema. No thyromegaly. CARDIOVASCULAR: S1 and S2 present. No murmurs, rubs, or gallops. PULMONARY: Chest is clear to auscultation, no wheezing or crackles. ABDOMEN: Soft, nontender, nondistended, normoactive bowel sounds. No palpable organomegaly. MUSCULOSKELETAL: No joint swelling or deformity. EXTREMITIES: No cyanosis, clubbing, or pedal edema. NEUROLOGICAL: Gross neurological examination did not reveal any focal deficits. SKIN: No rashes. Assessment and plan Intractable back pain Bacterial pneumonia History of mitral and aortic valve replacement Acute kidney injury Hypertension hyperlipidemia History of complete heart block s/p pacemaker placement History of atrial fibrillation Monitor vital signs Monitor CBC Monitor CMP Encourage ambulation Aggressive bronchopulmonary hygiene Continue IV Rocephin, completed azithromycin Continue pain management Orthopedic following Cardiology consulted Labs and medication were reviewed.. Continue same treatment. Continue with symptomatic treatment. Resume home medication. Monitor labs and vitals. DVT and GI prophylaxis. Further recommendations as per clinical course of the patient Dictation was produced using [employer] dictation software. please excuse any grammatical, word or spelling errors. Objective - Vital Signs Vital signs: Vital Signs Temp 98.1 F 09/28/23 11:44 Pulse 54 L 09/28/23 11:44 Resp 16 09/28/23 11:44 BP 104/68 09/28/23 11:44 Pulse Ox 93 L 09/28/23 11:44 FiO2 Intake & Output 09/27/23 09/28/23 09/28/23 18:59 06:59 18:59 Intake Total 900 120 Balance 900 120 Intake: Intake, IV Titration 900 Amount Sodium Chloride 0.9% 1, 900 000 ml @ 75 mls/hr IV . [id number] [facility] Rx#:[id number] Oral 120 Other: Voiding Method Toilet Toilet Toilet # Voids 3 - Labs CBC & Chem 7: 09/28/23 03:09 09/28/23 03:09 Labs: Abnormal Lab Results - Last 24 Hours (Table) 09/28/23 09/28/23 Range/Units 03:09 03:09 RBC 3.20 L (4.10-5.20) X 10*6/uL Hgb 10.0 L (12.0-15.0) g/dL Hct 30.9 L (37.2-46.3) % Immature Gran # 0.06 H (0.00-0.04) X 10*3/uL Total Bilirubin 0.2 L (0.3-1.2) mg/dL Total Protein 5.9 L (6.2-8.2) g/dL Albumin 3.3 L (3.8-4.9) g/dL Albumin/Globulin Ratio 1.27 L (1.60-3.17) Ratio
[2023-09-29 11:09] LABS: ALT 12 U/L (8-44); AST 15 U/L (13-35); Alkaline Phosphatase 75 U/L (41-126); BUN/Creat Ratio 15.56 Ratio (12.00-20.00); Calcium 9.2 mg/dL (8.7-10.3); Chloride 110 mmol/L (96-109); Globulin 2.3 g/dL (1.6-3.3); Glucose 85 mg/dL (70-110); Potassium 4.5 mmol/L (3.5-5.5); Sodium 141 mmol/L (135-145); Total Bilirubin 0.3 mg/dL (0.3-1.2); Total Protein 5.3 g/dL (6.2-8.2)
[2023-09-29 11:12] LABS: Basophils # (A) 0.04 X 10*3/uL (0.00-0.10); Basophils % (A) 0.6 %; Eosinophils # (A) 0.11 X 10*3/uL (0.04-0.35); Eosinophils % (A) 1.6 %; HCT 27.9 % (37.2-46.3); HGB 9.2 g/dL (12.0-15.0); Lymphocytes % (A) 29.2 %; MCH 31.5 pg (27.0-32.0); MCV 95.5 FL (80.0-97.0); Mean Platelet Volume 9.5 FL (9.5-12.2); Monocytes # (A) 0.82 X 10*3/uL (0.20-1.00); NRBC Per 100 WBC 0 X 10*3/uL (0.00-0.01); Neutrophils # (A) 3.82 X 10*3/uL (1.80-7.70); Neutrophils % (A) 55.6 %; Platelet Count 257 X 10*3/uL (140-440); RBC 2.92 X 10*6/uL (4.10-5.20); RDW 13.2 % (11.5-14.5); WBC 6.86 X 10*3/uL (4.50-10.00)
[2023-09-29] MEDS: ACETAMINOPHEN TAB 325 MG TAB PO PRN (12:16)
[2023-09-29 13:18] VITALS: BP 98/63; PULSE 60; RESP 18; TEMP 98
--- NOTE | 2023-09-29 14:14 | P.CRDCN ---
History of Present Illness History of present illness: HISTORY OF PRESENTING ILLNESS This is a pleasant 78-year-old with past medical history significant for nonischemic cardiomyopathy, CHF, valvular heart disease status post aortic valve replacement and mitral valve replacement, complete heart block status post permanent pacemaker, paroxysmal atrial fibrillation.she had a heart catheterization back in 2009 before her valve surgery with normal coronary arteries. She has had mild cardiomyopathy in the 40-45% range. She follows in the office with Dr. Valverde. She presented secondary extreme back spasm and pain with inability to move any particular position. This has slowly improved over last few days. Cardiology was consult that for new-onset of chest pressure. She states this occurred while at rest and no associated nausea, diaphoresis. EKG shows paced rhythm with nonspecific ST, T-wave abnormalities. Troponin normal on presentation. Her last echo from April 2022 showed EF 45%, mild mitral regurgitation, moderate tricuspid regurgitation, RVSP 37 and bioprosthetic aortic valve. Currently today she feels well and anxious to go home. REVIEW OF SYSTEMS At the time of my exam: CONSTITUTIONAL: Denies fever or chills. CARDIOVASCULAR: +chest pain, no shortness of breath, orthopnea, PND or palpitations. RESPIRATORY: Denies cough. GASTROINTESTINAL: Denies abdominal pain, diarrhea, constipation, nausea or vomiting. MUSCULOSKELETAL: Denies myalgias. NEUROLOGIC: Denies numbness, tingling or weakness. ENDOCRINE: Denies fatigue, weight change, polydipsia or polyurina. GENITOURINARY: Denies burning, hematuria or urgency with micturation. HEMATOLOGIC: Denies history of anemia or bleeding. PHYSICAL EXAMINATION Vital signs reviewed. CONSTITUTIONAL: No apparent distress. HEENT: Head is normocephalic. Pupils are equal, round. Sclerae anicteric. Mucous membranes of the mouth are moist. No JVD. No carotid bruit. CHEST EXAMINATION: Lungs are clear to auscultation. No chest wall tenderness is noted on palpation or with deep breathing. HEART EXAMINATION: Regular rate and rhythm. S1, S2 heard. No murmurs, gallops or rub. ABDOMEN: Soft, nontender. Positive bowel sounds. EXTREMITIES: 2+ peripheral pulses, no lower extremity edema and no calf tenderness. NEUROLOGIC EXAMINATION: Patient is awake, alert and oriented x3. ASSESSMENT atypical chest pain appears more related to spasm with recent back pain Back pain Normal coronary arteries by 2009 Mild nonischemic cardiomyopathy EF 40-45% Complete heart block status post permanent pacemaker Mildly elevated d-dimer however has been on anticoagulation Hypertension Status post aortic valve and mitral valve replacement Paroxysmal atrial fibrillation, currently sinus rhythm PLAN patient's chest pain is atypical and workup has been unrevealing. Additionally chest pain has improved. Also prior heart catheterization from 2009 had shown normal coronary arteries. No further workup needed as an inpatient and stable for discharge home from a cardiology standpoint. Follow-up in office in 1-2 weeks. Past Medical History Past Medical History: Cancer, Hyperlipidemia, Hypertension Additional Past Medical History / Comment(s): hx mitral & aortic valve replacement, pacemaker, skin cancer., See Cardiology [facility] & [facility]. History of Any Multi-Drug Resistant Organisms: None Reported Past Surgical History: Cardiac Valve Replacement, Hysterectomy, Pacemaker, Tubal Ligation Additional Past Surgical History / Comment(s): AORTIC/MITRAL VALVES REPLACED W/ BOVINE VALVES Past Anesthesia/Blood Transfusion Reactions: Previous Problems w/ Anesthesia, Family History of Problems w/ Anesthesia Additional Past Anesthesia/Blood Transfusion Reaction / Comment(s): PT TAKES LONG TIME TO AWAKEN FROM ANESTHESIA. STATES A COUSIN THAT HAS THE SAME PROBLEM . Type of Cardiac Device: Permanent Pacemaker Device Placement Date:: 2009 Past Psychological History: No Psychological Hx Reported Smoking Status: Never smoker Past Alcohol Use History: Rare Past Drug Use History: None Reported - Past Family History Son(s) Family Medical History: Cancer Additional Family Medical History / Comment(s): NON -HODGKINS LYMPHOMA Father Family Medical History: Cancer Brother(s) Family Medical History: Cancer Mother Family Medical History: Cancer Medications and Allergies Home Medications Medication Instructions Recorded Confirmed Type Lisinopril [Prinivil] 2.5 mg PO HS 04/10/14 09/26/23 History Apixaban [Eliquis] 5 mg PO BID 10/31/21 09/26/23 History Atorvastatin [Lipitor] 40 mg PO HS 10/31/21 09/26/23 History Spironolactone [Aldactone] 25 mg PO DAILY 10/31/21 09/26/23 History carvediloL [Coreg] 12.5 mg PO BID 10/31/21 09/26/23 History tiZANidine [Zanaflex] 4 mg PO Q8HR 09/26/23 09/26/23 History Allergies Allergy/AdvReac Type Severity Reaction Status Date / Time No Known Allergies Allergy Verified 09/26/23 09:11 Physical Exam Vitals: Vital Signs Temp Pulse Pulse Resp BP BP Pulse Ox 09/29/23 12:57 98.0 F 49 L 60 18 98/63 94 L 09/29/23 07:12 97.9 F 69 16 111/69 94 L 09/29/23 02:00 98 F 60 16 99/67 95 09/28/23 19:02 98 F 66 16 109/71 93 L Intake and Output 09/28/23 09/29/23 09/29/23 22:59 06:59 14:59 Other: # Voids 3 3 Results 09/29/23 05:49 09/29/23 05:49 Cardiac Enzymes 09/29/23 Range/Units 05:49 AST 15 (13-35) U/L CBC 09/29/23 Range/Units 05:49 WBC 6.86 (4.50-10.00) X 10*3/uL RBC 2.92 L (4.10-5.20) X 10*6/uL Hgb 9.2 L (12.0-15.0) g/dL Hct 27.9 L (37.2-46.3) % Plt Count 257 (140-440) X 10*3/uL Comprehensive Metabolic Panel 09/29/23 Range/Units 05:49 Sodium 141 (135-145) mmol/L Potassium 4.5 (3.5-5.5) mmol/L Chloride 110 H (96-109) mmol/L Carbon Dioxide 23.0 (21.6-31.8) mmol/L BUN 14.0 (9.0-27.0) mg/dL Creatinine 0.9 (0.6-1.5) mg/dL Glucose 85 (70-110) mg/dL Calcium 9.2 (8.7-10.3) mg/dL AST 15 (13-35) U/L ALT 12 (8-44) U/L Alkaline Phosphatase 75 (41-126) U/L Total Protein 5.3 L (6.2-8.2) g/dL Albumin 3.0 L (3.8-4.9) g/dL Current Medications Generic Name Dose Route Start Last Admin Trade Name Freq PRN Reason Stop Dose Admin Acetaminophen 650 mg 09/26/23 10:37 09/29/23 12:16 Acetaminophen Tab 325 Mg Tab PO 650 mg Q6HR PRN Administration Mild Pain or Fever > 100.5 Apixaban 5 mg 09/26/23 11:00 09/29/23 08:37 Apixaban 5 Mg Tab PO 5 mg BID INGRID Administration Protocol Atorvastatin Calcium 40 mg 09/26/23 21:00 09/28/23 20:55 Atorvastatin 40 Mg Tab PO 40 mg HS INGRID Administration Carvedilol 12.5 mg 09/26/23 21:00 09/29/23 08:37 Carvedilol 12.5 Mg Tab PO 12.5 mg BID INGRID Administration Ceftriaxone Sodium 2 gm/ 50 mls @ 100 mls/hr 09/26/23 09:00 09/29/23 08:37 Sodium Chloride IVPB 100 mls/hr DAILY INGRID Administration Protocol Lidocaine 1 patch 09/27/23 14:30 09/29/23 08:38 Lidocaine 4% Patch TOPICAL 1 patch DAILY [facility] Administration Protocol Morphine Sulfate 4 mg 09/26/23 01:27 Morphine Sulfate 4 Mg/Ml Syringe IV Q4HR PRN Severe Pain (Scale 7 to 10) Naloxone HCl 0.2 mg 09/26/23 10:37 Naloxone 0.4 Mg/Ml 1 Ml Vial IV Q2M PRN Opioid Reversal Ondansetron HCl 4 mg 09/26/23 10:37 09/26/23 18:59 Ondansetron 4 Mg/2 Ml Vial IVP 4 mg Q8HR PRN Administration Nausea And Vomiting Orphenadrine Citrate 60 mg 09/26/23 01:21 Orphenadrine 30 Mg/Ml 2 Ml Vial IM Q8HR PRN Muscle Spasm Oxycodone/Acetaminophen 1 each 09/26/23 10:37 09/26/23 16:10 Oxycodone-Apap 5-325mg 1 Each Tab PO 1 each Q4HR PRN Administration Severe Pain (Scale 7 to 10) Intake and Output 09/28/23 09/29/23 09/29/23 22:59 06:59 14:59 Other: # Voids 3 3 09/29/23 05:49 09/29/23 05:49
== END 2023-09-29 16:04 | disposition home or self-care (01) ==
LOC: EC 21:54 → 5NMEDONC 09-26 01:27
PROVIDERS: ADMIT Hospitalist; ATTEND Hospitalist
DX: M51.34 Other intervertebral disc degeneration, thoracic region (principal); M40.294 Other kyphosis, thoracic region; M62.830 Muscle spasm of back; R53.83 Other fatigue; E78.5 Hyperlipidemia, unspecified; I42.8 Other cardiomyopathies; I11.0 Hypertensive heart disease with heart failure; I50.9 Heart failure, unspecified; I48.0 Paroxysmal atrial fibrillation; R79.89 Other specified abnormal findings of blood chemistry; I44.2 Atrioventricular block, complete; J15.9 Unspecified bacterial pneumonia; N17.9 Acute kidney failure, unspecified; Z85.828 Personal history of other malignant neoplasm of skin; Z95.0 Presence of cardiac pacemaker; Z95.3 Presence of xenogenic heart valve; Z79.01 Long term (current) use of anticoagulants; Z79.899 Other long term (current) drug therapy
CPT/HCPCS: 96376 ×4; 96361 ×2; 96365; 96366 ×3; 96375 ×2; 99285; 36415; 93005; 85379; 80053 ×3; 80048; 84484 ×2; 85025 ×4; 85610; 85730; 72128; 71250; G0378 ×4; J2405; J0696 ×4; J1885 ×4

== ENCOUNTER → 2023-11-26 | Outpatient (CLI) | payer MEDICARE ==
[2023-11-27 02:37] LABS: HGB 12.3 g/dL (12.0-15.0); MCH 32.1 pg (27.0-32.0); MCHC 32.4 g/dL (32.0-37.0); MCV 99.2 FL (80.0-97.0); Mean Platelet Volume 9.7 FL (9.5-12.2); NRBC Per 100 WBC 0 X 10*3/uL (0.00-0.01); Platelet Count 186 X 10*3/uL (140-440); RBC 3.83 X 10*6/uL (4.10-5.20); RDW 13.5 % (11.5-14.5); WBC 5.64 X 10*3/uL (4.50-10.00)
[2023-11-27 03:07] LABS: Blood Urea Nitrogen 26.2 mg/dL (9.0-27.0); Carbon Dioxide 25.1 mmol/L (21.6-31.8); Chloride 102 mmol/L (96-109); Sodium 137 mmol/L (135-145)
== END | disposition home or self-care (01) ==
LOC: LABPAT 14:07
PROVIDERS: ATTEND Internal Medicine Interventional Cardiology
DX: Z01.818 Encounter for other preprocedural examination
CPT/HCPCS: 80051; 82565; 84520; 85027

== ENCOUNTER → 2023-12-04 | Day surgery (SDC) | payer MEDICARE ==
[2023-11-30 15:57] VITALS: BMI 21.9
[~2023-12-04] MED LIST changes: +ALPRAZolam 0.25 MG TAB PO PRN; +ALPRAZolam 0.5 MG TAB PO PRN; +ATORVASTATIN 40 MG TAB PO SCH; -LACTATED RINGERS 1,000 ML IV SCH; +MULTIVITAMINS, THERA 1 EACH TAB PO SCH; +NITROGLYCERIN SL TABS 0.4 MG TAB SUBLINGUAL PRN; +RX INFO: IV CONTRAST WAS GIVEN 1 EACH MISC MISCELLANE PRN; +SPIRONOLACTONE 25 MG TAB PO SCH; +carvediloL 12.5 MG TAB PO SCH; -ceFAZolin 1 GM in SODIUM CHLORIDE 0.9% IRRIG BTL 250 ML IRRIGATION PRN
[2023-12-04] MEDS: SODIUM CHLORIDE 0.9% 1,000 ML in EMPTY BAG 1 BAG IV SCH (06:15)
[2023-12-04] MEDS: IV FLUID CONTINUATION 1,000 ML IV ONE (06:15)
[2023-12-04] MEDS: ASPIRIN 325 MG TAB PO STA (06:17)
[2023-12-04 06:35] VITALS: TEMP 97
[2023-12-04] MEDS: fentaNYL (PF) 50 MCG/ML 2 ML AMP IVP ONE (07:36)
[2023-12-04] MEDS: HEPARIN SODIUM,PORCINE (1 ML) 2,500 UNIT in SODIUM CHLORIDE 0.9% 250 ML IRRIGATION PRN (07:37)
[2023-12-04] MEDS: HEPARIN SODIUM,PORCINE 10,000 UNIT in SODIUM CHLORIDE 0.9% 1,000 ML IRRIGATION PRN (07:37)
[2023-12-04] MEDS: LIDOCAINE 1% INJ 10MG/ML (20 ML MDV) SQ ONE (07:39)
[2023-12-04] MEDS: VERAPAMIL SYRINGE (5 MG/10 ML) INTRAARTER ONE (07:39)
[2023-12-04] MEDS: MIDAZOLAM 2 MG/2 ML VIAL IVP ONE (07:41)
[2023-12-04] MEDS: HEPARIN SODIUM 1,000 UN/ML (10ML VL) IVP ONE (07:43)
[2023-12-04] MEDS: IOPAMIDOL-370 200ML BTL INJ ONE (07:49)
--- NOTE | 2023-12-04 08:11 | P.CARDCATH ---
Date of Procedure: 12/04/23 Description of Procedure: Cardiac Catheterization: The patient is a 78-year-old female with known history of hyperlipidemia, hypertension, history of aortic and mitral valve surgery who has been followed by Dr. Valverde, underwent an MPI that showed lateral wall ischemia. Recommendations were made regarding cardiac catheterization, the risks and the complications were discussed with the patient who is in full understanding and agreement. Procedure Description: Patient was brought to [facility] in fasting semi-sedated state after receiving Fentanyl and Benadryl achieiving moderate conscious sedated state. Using Xylocaine Anesthesia and modified Seldinger technique, a 6-Nepali sheath was introduced in the right radial artery . Subsequently, selective coronary angiography was performed using a 5-Nepali 3.5 bend Lydia catheter. Multiple views of the coronary artery including hemiaxial views were obtained. Following that, catheter and sheath were removed. Hemostasis was obtained with deployment of vascular band . There was no immediate complication. Patient was returned to room in stable condition. Of note, the patient received a total of 3000 units of intravenous heparin as well as intra-arterial verapamil. Findings: Left main: This is a short size vessel large in caliber, bifurcating into LAD and left circumflex, left main has no evidence of obstructive disease LAD: This is a large size vessel, reaching to the apex, giving rise to a large diagonal branch proximally, the LAD and its branches have no obstructive disease Left circumflex: This is a large nondominant vessel, giving rise to a large obtuse marginal branch that has no obstructive disease RCA: This is a large dominant vessel, bifurcating distally to PDA and PLV, the right coronary artery and its branches have no obstructive disease Left Ventriculogram: Not performed Conclusion: 1. Normal coronary arteries 2. Right dominance 3. Fluoroscopy revealed aortic valve bioprosthesis and mitral annuloplasty Recommendations: I see no evidence of obstructive CAD, the patient will continue on her aggressive coronary risks modifications. The findings and the recommendations were discussed with the patient and the family and they were in full understanding and agreement. Duration of sedation is 13 minutes.
[2023-12-04 13:16] VITALS: PULSE 52
[2023-12-04 13:18] VITALS: BP 88/54; RESP 16
== END ==
LOC: CATHCVL 05:41
PROVIDERS: ATTEND Internal Medicine Interventional Cardiology
DX: R94.39 Abnormal result of other cardiovascular function study
CPT/HCPCS: 93458

== ENCOUNTER → 2024-01-27 | Outpatient (CLI) | payer MEDICARE ==
[2024-01-27 15:59] LABS: BUN/Creat Ratio 18.09 Ratio (12.00-20.00); Blood Urea Nitrogen 19.9 mg/dL (9.0-27.0); Carbon Dioxide 26.6 mmol/L (21.6-31.8); Chloride 106 mmol/L (96-109); Chol/HDL Ratio 2.69 Ratio; Glucose 91 mg/dL (70-110); LDL Cholesterol,Calculated 70.7 mg/dL (0.0-131.0); Sodium 142 mmol/L (135-145)
[2024-01-27 16:00] LABS: Calcium 10.2 mg/dL (8.7-10.3)
== END | disposition home or self-care (01) ==
LOC: LABWHC1 10:35
PROVIDERS: ATTEND Family Medicine
DX: N17.9 Acute kidney failure, unspecified (principal); E78.2 Mixed hyperlipidemia
CPT/HCPCS: 36415; 80048; 80061

== ENCOUNTER → 2024-07-28 | Outpatient (CLI) | payer MEDICARE ==
[2024-07-28 21:15] LABS: Basophils # (A) 0.03 X 10*3/uL (0.00-0.10); Basophils % (A) 0.4 %; Eosinophils # (A) 0.15 X 10*3/uL (0.04-0.35); Eosinophils % (A) 1.9 %; HCT 36.4 % (37.2-46.3); HGB 11.8 g/dL (12.0-15.0); Lymphocytes # (A) 1.16 X 10*3/uL (0.90-5.00); Lymphocytes % (A) 14.6 %; MCH 32.8 pg (27.0-32.0); MCHC 32.4 g/dL (32.0-37.0); MCV 101.1 FL (80.0-97.0); Mean Platelet Volume 9.7 FL (9.5-12.2); Monocytes # (A) 0.69 X 10*3/uL (0.20-1.00); Monocytes % (A) 8.7 %; NRBC Per 100 WBC 0 X 10*3/uL (0.00-0.01); Neutrophils # (A) 5.92 X 10*3/uL (1.80-7.70); Neutrophils % (A) 74.1 %; Platelet Count 159 X 10*3/uL (140-440); RDW 14.2 % (11.5-14.5); WBC 7.97 X 10*3/uL (4.50-10.00)
== END | disposition home or self-care (01) ==
LOC: LABWHC1 12:42
PROVIDERS: ATTEND Family Medicine
DX: R05.3 Chronic cough (principal)
CPT/HCPCS: 36415; 85025

== ENCOUNTER → 2024-07-28 | Outpatient (CLI) | payer MEDICARE ==
--- NOTE | 2024-07-28 13:44 | XR ---
EXAMINATION TYPE: XR chest 2V DATE OF EXAM: 07/28/2024 1:24 PM COMPARISON: 04/23/2022 CLINICAL INDICATION: Female, 79 years old with history of R05.3 CHRONIC COUGH, , TECHNIQUE: Frontal and lateral views FINDINGS: Median sternotomy wires with prosthetic aortic valve and additional annuloplasty ring. Heart moderate ly enlarged. Left anterior chest wall pacemaker generator with right atrial, right ventricular, and c oronary sinus leads. There are trace bilateral pleural effusions with mild patchy bibasilar opacity. Mild interstitial prominence. IMPRESSION: Moderate cardiomegaly and background COPD. There are trace bilateral pleural effusions with some [place] atelectasis and/or consolidation. Consider sequela of mild CHF. [facility], , 07/28/2024 1:42 PM
== END | disposition home or self-care (01) ==
LOC: RADXRMAIN 13:09
PROVIDERS: ATTEND Nurse Practitioner Family
DX: J44.9 Chronic obstructive pulmonary disease, unspecified (principal); I51.7 Cardiomegaly; J90 Pleural effusion, not elsewhere classified; J98.11 Atelectasis
CPT/HCPCS: 71046

== ENCOUNTER → 2024-09-27 | Outpatient (CLI) | payer MEDICARE ==
[2024-09-27 15:21] LABS: Anion Gap 9.50 mmol/L (4.00-12.00); BUN/Creat Ratio 24.09 Ratio (12.00-20.00); Blood Urea Nitrogen 26.5 mg/dL (9.0-27.0); Calcium 9.9 mg/dL (8.7-10.3); Carbon Dioxide 25.5 mmol/L (21.6-31.8); Chloride 105 mmol/L (96-109); Glucose 98 mg/dL (70-110); Magnesium 2.0 mg/dL (1.5-2.4); Potassium 5.4 mmol/L (3.5-5.5); Sodium 140 mmol/L (135-145)
== END | disposition home or self-care (01) ==
LOC: LABWHC1 09:56
PROVIDERS: ATTEND Internal Medicine Clinical Cardiac Electrophysiology
DX: I10 Essential (primary) hypertension (principal)
CPT/HCPCS: 36415; 80048; 83735

== ENCOUNTER 2024-10-05 07:06 | Day surgery (SDC) | payer MEDICARE ==
[2024-10-05 08:05] VITALS: TEMP 97
[2024-10-05] MEDS: IV FLUID CONTINUATION 1,000 ML IV ONE (09:14)
[2024-10-05] MEDS: BENZOCAINE SPRAY 1 EACH MUCOUS MEM ONE (09:24)
[2024-10-05] MEDS: fentaNYL (PF) 50 MCG/1 ML VIAL IVP ONE (09:35)
[2024-10-05] MEDS: MIDAZOLAM 2 MG/2 ML VIAL IVP ONE (09:35)
[2024-10-05 10:16] VITALS: RESP 16
[2024-10-05 11:01] VITALS: BP 113/72; PULSE 49
--- NOTE | 2024-10-05 13:17 | P.TEE ---
Indications for Procedure(s): Valvular heart disease Date of Procedure: 10/05/24 Description of Procedure(s): Procedure performed: 1. Transesophageal Echocardiogram with color flow doppler, pulsed wave doppler and continuous wave doppler, (CPT 59622, +[id number], +[id number]) 2. Moderate conscious sedation. Sedation time [20] mins. (CPT 00343) Indications: 1. Severe aortic stenosis 2. Mitral regurgitation 3. Prior history of bioprosthetic aortic and mitral valve Consent: I have discussed the risks, benefits and alternative therapies for the above-mentioned procedure. The patient has indicated understanding and acceptance of the risks of the procedure. Signed consent was obtained and was placed in the paper chart. Procedural Steps: Timeout was performed in usual fashion. Patient's heart rate, blood pressure, oxygen saturation and ECG were monitored. Benzocaine was sprayed liberally in the back of the throat. Bite block was placed between the jaw. 2 mg of Versed and 50 mcg of Fentanyl were administered intravenously. After achieving appropriate moderate conscious sedation, MIKKI probe was advanced without difficulty and without any immediate complications to the esophagus. MIKKI study was performed with color flow doppler, pulsed wave doppler and continuous wave doppler. The probe was then removed. Patient tolerated the procedure well. Patient was transferred to the post procedure area in stable and satisfactory condition. Throughout the procedure patient's heart rate, blood pressure, oxygen saturation and ECG were monitored. Total sedation time 20 mins. Complications: none FINDINGS Left Atrium: Severe left atrial dilatation. No evidence of mass or thrombus seen Left Atrial Appendage: No evidence of thrombus or mass seen in TE. Dilated TE with low Doppler velocities. Inter atrial septum: Intact inter-atrial septum with no evidence of ASD or PFO on color Doppler. Left Ventricle: Normal global LV size and systolic function Right Atrium: Moderate RA dilatation. PPM wire noticed Right Ventricle: Normal global RV size and systolic function. PPM wire noticed Aortic Valve: Bioprosthetic aortic valve with annular and leaflet calcification. Severe aortic stenosis with mean gradient of 51 mmHg. Acceleration time more than 120 ms. Mitral Valve: Bioprosthetic aortic valve with restricted posterior mitral leaflet and mitral annular calcification. Highly eccentric mitral regurgitation. Pisa radius 0.6 cm, aliasing velocity 39 cm/s, MR VTI 200 cm, MR V-max 5.6 cm/s. EROA 0.2 cm, regurgitant volume 40 mL per beat. Mitral valve area by planimetry 2.7 cm Pulmonic Valve: Not well visualized. Tricuspid Valve: Mild to moderate tricuspid regurgitation. Ascending aorta, Aortic root and Aortic arch: Normal size aortic root. Dilated ascending aorta measuring 4.3 cm. Descending aorta: Mild intimal thickening. Calcific atheromatous noticed in aortic arch and descending aorta measuring around 5 mm. No pericardial effusion CONCLUSION: Severe bioprosthetic aortic valve stenosis with mean gradient 51 mmHg, AT >120msec Bioprosthetic mitral valve with moderate eccentric mitral regurgitation. Severe LA dilatation. No thrombus in TE Preserved LV size and systolic function Ascending aorta 4.3 cm with evidence of calcific atheromatous in aortic arch and descending aorta. Chris Jovel MD, RPVI, FACC Thank you for allowing [facility] to participate in this patient's care. Feel free to reach out in case of any followup questions.
== END 2024-10-05 11:12 | disposition home or self-care (01) ==
LOC: CATHCVL 07:06
PROVIDERS: ATTEND Student in an Organized Health Care Education/Training Program
DX: I42.0 Dilated cardiomyopathy (principal); I47.19 Other supraventricular tachycardia; I44.2 Atrioventricular block, complete; I08.0 Rheumatic disorders of both mitral and aortic valves; I70.0 Atherosclerosis of aorta; I50.22 Chronic systolic (congestive) heart failure; E78.5 Hyperlipidemia, unspecified; Z98.890 Other specified postprocedural states; Z95.2 Presence of prosthetic heart valve; Z95.3 Presence of xenogenic heart valve; Z79.01 Long term (current) use of anticoagulants; Z79.899 Other long term (current) drug therapy
CPT/HCPCS: 93312; 93320; 93325; 99152; J2250; J3010